=== PATIENT | female | born 1990 | race Caucasian/White ===

== ENCOUNTER 2020-09-26 18:55 | Inpatient (IN) | payer OTHER, SELFPAY ==
--- NOTE | 2020-09-26 16:55 | PCM.HP.OB ---
- Problem List (1) 40 weeks gestation of Status: Acute (2) Lab test positive for detection of COVID-19 virus Status: Acute History Date of Admission: 09/26/20 Final ROSETTE: 09/25/20 Gestational age: 40 Weeks and 1 Days History of this : This is a 30 year-old, G 2, P 0010, at 40w1d gestational age who presents for scheduled IOL for covid positive in . has been uncomplicated. She tested positive for covid on 09/14/2020. She had mild symptoms. Medical History: Medical History (Last Updated 09/26/20 @ 16:[address] Reny Cameron, DO) History of miscarriage Z87.59 Surgical History: Surgical History (Last Updated 09/26/20 @ 16:[address] Reny Cameron, ) History of wisdom tooth extraction K08.409 Smoking Status: Never smoker Alcohol: None Number of Fetus(es): 1 History Past Pregnancies: Past Pregnancies Delivery Date Name GA/ Weeks Outcome Route Wt Sex Labor Length Anesthesia Delivery Location Provider FOB Labs: See [facility] records Expected Infant Delivery Method: Spontaneous Vaginal Assessment/Plan All Active Problems 40 weeks gestation of (Acute) Lab test positive for detection of COVID-19 virus (Acute) This is a 30 year-old, G 2, P 0010, at 40w1d gestational age who presents for scheduled IOL for covid. - She tested positive for covid on 09/14/2020. She has had mild symptoms. She had an NST that was reactive this week. Plan was discussed with [facility] by myself, as well as partner Dr. Saavedra, and [facility] recommended a 40 wk IOL given covid positive in . Her is asymptomatic and tested negative per the patient's report about 1 week ago. Discussed r/b/a to an IOL and pt consented and desires to proceed with an induction - Routine intrapartum care - GBS negative - Epidural PRN - Plans on . Discussed safe to limit exposure to covid in the office - To coordinate care of patient with peds and
[2020-09-26 19:20] VITALS: BP 121/76; PULSE 64; TEMP 37.2; O2SAT 98
[2020-09-26 19:21] VITALS: BMI 24.0
[2020-09-26] MEDS: Lactated Ringers 1,000 ML 50 ML IV (19:40)
[2020-09-26] MEDS: miSOPROStol 25 MCG TABLET PO (20:05)
[2020-09-26] MEDS: 0.9% Saline Lock 10 ML Syringe IV (20:09)
[2020-09-26 20:13] LABS: Absolute Lymphocyte Count 2.79 X10^3/uL (0.83-4.51); Absolute Neutrophil Count 5.1 X10^3/uL (2.0-7.7); Basophil# 0.01 X10^3/uL; Basophil% 0.1 % (0-1); Eosinophil# 0.07 X10^3/uL; Eosinophils% 0.8 % (0-5); Hematocrit 33.9 % (37-47); Hemoglobin 11.4 g/dL (12.0-15.0); Lymphocyte # 2.79 X10^3/ul (4.0); Lymphocyte % 31.8 % (19-41); Mean Corp Hgb Conc 33.6 g/dL (32-36); Mean Corpuscular Hgb 29.7 pg (27.0-32.0); Mean Corpuscular Volume 88.3 fL (81-99); Mean Platelet Vol. 10.4 fl (6.2-12.0); Monocyte# 0.69 X10^3/uL; Monocyte% 7.9 % (0-10); NRBC Flagged by Analyzer 0 % (0-5); Neutrophil # 5.09 X10^3/uL (2.7-7.7); Neutrophil % 58.1 % (47-70); Platelet Count 183 K/mm3 (150-450); RBC Distribution Width CV 13.1 % (11.6-14.6); Red Blood Count 3.84 M/mm3 (4.2-5.4); White Blood Count 8.8 K/mm3 (4.4-11.0)
[2020-09-26] MEDS: Acetaminophen 325 MG Tablet PO (21:02)
[2020-09-27] VITALS (44 sets, daily range): BP systolic 94–133; BP diastolic 48–80; PULSE 55–91; RESP 16–18; TEMP 36.4–37.6; O2SAT 95–100
[2020-09-27] MEDS: miSOPROStol 25 MCG TABLET PO ×2 (00:20→04:14)
[2020-09-27] MEDS: Lactated Ringers 500 ML 999 ML IV ×3 (01:18→13:28)
[2020-09-27] MEDS: Lactated Ringers 1,000 ML 200 ML IV (07:50)
--- NOTE | 2020-09-27 08:34 | PN.OBGYN_ITS ---
Patient Problems: Active and Suspected Problems (Last Updated 09/26/20 @ 16:[address] Reny Cameorn, DO) 40 weeks gestation of (Acute) Lab test positive for detection of COVID-19 virus (Acute) Subjective: Patient seen at bedside. Denies any pain. Denies feeling any contractions. Slept off and on throughout the night. - Physical Exam Vitals/I&O's: Vital Signs Temp Pulse BP Pulse Ox 98.1 F 55 L 107/67 99 09/27/20 07:36 09/27/20 07:36 09/27/20 07:36 09/27/20 07:36 Weight: 139 lb 15.896 oz Body Mass Index (BMI) 24.0 Intake and Output for Last 24 Hours 09/25/20 09/26/20 09/27/20 23:59 23:59 23:59 Intake Total 25.83 / 25.83 1296.17 / 1296.17 Output Total 500 / 500 Balance 25.83 / 25.83 796.17 / 796.17 General: Alert, Oriented x3, Cooperative Lungs: Normal air movement Cardiovascular: Regular rate Abdomen: Soft, Non Tender, Gravid Skin: No rashes Neurological: Cranial nerves II-XII grossly intact Psych/Mental Status: Normal Affect Laboratory Results 09/26/20 19:40: WBC 8.8, RBC 3.84 L, Hgb 11.4 L, Hct 33.9 L, MCV 88.3, MCH 29.7, MCHC 33.6, RDW Std Deviation 42.0, RDW Coeff of Romy 13.1, Plt Count 183, MPV 10.4, Immature Gran % (Auto) 1.300 H, Neut % (Auto) 58.1, Lymph % (Auto) 31.8, [place] % (Auto) 7.9, Eos % (Auto) 0.8, Baso % (Auto) 0.1, Absolute Neuts (auto) 5.1, Absolute Lymphs (auto) 2.79, Nucleated RBC % 0 09/26/20 19:40: Blood Type A POSITIVE, Antibody Screen NEGATIVE Current Medications Acetaminophen (Acetaminophen 325 Mg Tablet) 325 - 650 mg PO Q4H PRN PRN PRN Reason: Pain Score 1-3 Last Admin: 09/26/20 21:02 Dose: 650 mg Documented by: Al Hydroxide/Mg Hydroxide (Mag Hydrox/Al Hydrox/Simeth 30 Ml Udc) 15 - 30 ml PO Q4H PRN PRN PRN Reason: INDIGESTION Citric Acid/Sodium Citrate (Sodium Citrate/Citric Acid 30 Ml Udc) 30 ml PO X1 PRN PRN Reason: Section Fentanyl Citrate (Fentanyl 100 Mcg/2 Ml Ampul) 25 - 50 mcg IV Q2H PRN PRN PRN Reason: Pain Score 4-10 Lactated Ringer's () 500 mls @ 999 mls/hr IV .Q31M PRN PRN Reason: Epidural Last Infusion: 09/27/20 01:49 Dose: Infused Documented by: Lactated Ringer's () 500 mls @ 999 mls/hr IV .Q31M PRN PRN Reason: Corrective Measures Lactated Ringer's () 1,000 mls @ 50 mls/hr IV .Q20H ISAIAS Last Admin: 09/27/20 07:50 Dose: 200 mls/hr Documented by: Oxytocin/Sodium Chloride () 30 units in 500 mls @ 2 mls/hr IV .Q250H ISAIAS Misoprostol (Misoprostol 25 Mcg Tablet) 25 mcg PO Q4H ISAIAS Last Admin: 09/27/20 04:14 Dose: 25 mcg Documented by: Ondansetron HCl (Ondansetron 4 Mg/2 Ml Vial) 4 mg IV Q4H PRN PRN PRN Reason: NAUSEA Prochlorperazine Edisylate (Prochlorperazine 10 Mg/2 Ml Vial) 10 mg IV Q6H PRN PRN PRN Reason: NAUSEA Sodium Chloride (0.9% Saline Lock 10 Ml Syringe) 10 - 40 ml IV X1 PRN PRN Reason: SALINE FLUSH Last Admin: 09/26/20 20:09 Dose: 10 ml Documented by: Medical Necessity - Tobacco Use Smoking Status: Never smoker Assessment/Plan All Active Problems (Last Updated 09/26/20 @ 16:[address] Reny Cameron, DO) 40 weeks gestation of (Acute) Lab test positive for detection of COVID-19 virus (Acute) at 40.0 weeks gestation for induction of labor due to COVID-19 positive test result 10 days ago Category 1 tracing currently Category 2 with variables and prolonged deceleration earlier this morning Continue present plan of care. CE/-3 (no change from 399) A.R.O.M for clear fluid- IUPC placed Start IV Pitocin and titrate per policy Patient desires epdural Dr. Montes notified and is collaborating physician
[2020-09-27] MEDS: Oxytocin 30 units/NS 500 ml 30 UNITS/500 ML IV.SOLN IV (10:15)
[2020-09-27] MEDS: fentaNYL-bupivacaine (epidural) 100 ML BAG EPIDURAL (14:11)
--- NOTE | 2020-09-27 16:01 | NURSING ---
Small blister to lower right quadrant noted on abdomen during prep from novii monitor.Will continue to monitor.
[2020-09-27] MEDS: Sodium Citrate/Citric Acid 30 ML UDC PO (16:04)
[2020-09-27] MEDS: Cefazolin 2 GM in 0.9% Normal Saline 100 ML IV (16:08)
--- NOTE | 2020-09-27 17:38 | OP.PCM_ITS ---
Report of Operation Surgery/Procedure Performed:: Primary low transverse section Description of Surgical Findings:: Normal maternal uterus and adnexa Delivery Classification: KIMBERLY Final ROSETTE: 09/25/20 Gestational age: 40 Weeks and 2 Days county home demonstration agent: Chayito Castro Type of Anesthesia:: Epidural Date of Procedure: 09/27/20 Pre-Operative Diagnosis: (1) Inability of fetus to tolerate labor Post-Operative Diagnosis: Same Indications: Patient was admitted for induction of labor due to history of COVID in . Patient received cytotec and then was started on pitocin. Amniotomy performed. Some late decelerations were noted and resolved with interventions. Pitocin was restarted and she began to have persistent late decelerations. Patient counseled on R/B/A and decision made to proceed with primary section. Indications for : Nonreassuring Status Description of Procedure: Patient taken to OR where epidural anesthesia was dosed. She was prepped and draped in the normal sterile fashion in a dorsal supine position with a leftward tilt. After ensuring adequacy of anesthesia the Pfannensteil skin incision was made and carried through to the underlying fascia with a scalpel. The fascia was incised in the midline and carried laterally with the Raygoza scissors. The rectus muscles were in the midline and the peritoneum was entered bluntly. The bladder flap was dissected down carefully with the Metzenbaum scissors and blunt dissection. The uterus was incised in a transverse fashion and then incision extended with cephalocaudad traction. The fetus was vertex and the head was elevated to the uterine incision. With fundal pressure the head delivered. head was gently guided to allow delivery of anterior and posterior shoulders. No excess traction placed on head. Body delivered and 3VC clamped & cut in delayed fashion. Then the was handed off to the waiting RN. The placenta was delivered with gentle traction and fundal massage and the uterus was exteriorized and cleared of all clots and debris. The uterine incision was closed with 1 vicryl suture in a running locked fashion. The bovie was used to further obtain further hemostasis of the uterine incision. A second imbricating layer of monocryl was placed. The uterus was returned to the peritoneal cavity. The pelvis was irrigated & then cleared of all clots and debris. 2 additional sutures were placed on the uterine incision to further obtain excellent hemostasis. The uterine incision was reexamined and found to be hemostatic. Some aaron was placed over the uterine incision due to the denuded areas. Peritoneum closed with 3-0 vicryl in running fashion. The fascia was closed with looped PDS suture in a running standard fashion. The subcutaneous tissue was examined & any bleeding bovie cauterized. The subcutaneous tissue was reapproximated with plain gut suture. The skin was closed in a subcuticular fashion by the GYROSCOPIC INSTRUMENT TESTER with me present in the labor and delivery suite. I performed the remainder of the procedure w/ assistance. Amniotic Membrane Rupture Type: Artificial Amniotic Fluid Description: Clear Placenta Disposition: [facility] Drain: Carrero to straight drain Fluids Replaced: 1300ml Cord Entanglement: Around neck x 1, loose Nuchal Cord Compression: With compression Cord Vessel Description: 3 Vessels Esitmated Blood Loss (ml): 800ml Gender: Female - Semaj (1 minute): 8 (5 minute): 9 Delayed cord clamping: Yes Antibiotic Given: Ancef 2 grams IV x1 - Admit VTE Documentation VTE Present on Admission: No VTE Mechan Device Prophylaxis: SCD's
[2020-09-27] MEDS: Oxytocin 30 units/NS 500 ml 30 UNITS/500 ML IV.SOLN 167 UNITS IV (18:48)
--- NOTE | 2020-09-27 19:58 | NURSING ---
epidural catheter removed, blue tip intact
[2020-09-27] MEDS: Acetaminophen 500 MG Tablet 1000 MG PO (20:08)
[2020-09-27] MEDS: Lactated Ringers 1,000 ML 100 ML IV (21:53)
[2020-09-27] MEDS: Ketorolac 30 MG/ML Syringe IV (22:59)
[2020-09-27] MEDS: Enoxaparin 40 MG/0.4 ML Syringe SC (23:54)
[2020-09-28] VITALS (8 sets, daily range): BP systolic 88–101; BP diastolic 45–60; PULSE 67–93; RESP 14–18; TEMP 36.6–37.5; O2SAT 98–99
[2020-09-28] MEDS: Acetaminophen 500 MG Tablet 1000 MG PO ×4 (02:02→20:40)
[2020-09-28] MEDS: Ketorolac 30 MG/ML Syringe IV (06:03)
[2020-09-28] MEDS: 0.9% Saline Lock 10 ML Syringe IV (06:04)
--- NOTE | 2020-09-28 06:12 | NURSING ---
patient received 0.5ml of Toradol before it began burning. Patient refused other 0.5ml of dose and does not want any further toradol given. saline lock left in place until pt finishes two voids.
[2020-09-28 06:30] LABS: Hematocrit 23.5 % (37-47); Hemoglobin 7.7 g/dL (12.0-15.0); Mean Corp Hgb Conc 32.8 g/dL (32-36); Mean Corpuscular Hgb 29.3 pg (27.0-32.0); Mean Corpuscular Volume 89.4 fL (81-99); Mean Platelet Vol. 9.7 fl (6.2-12.0); Platelet Count 128 K/mm3 (150-450); RBC Distribution Width CV 13.3 % (11.6-14.6); RBC Distribution Width SD 43.8 fl (35.1-43.9); Red Blood Count 2.63 M/mm3 (4.2-5.4)
--- NOTE | 2020-09-28 07:34 | PCM.PN.OB ---
Patient Problems: Active and Suspected Problems (Last Updated 09/26/20 @ 16:[address] Reny Cameron, DO) 40 weeks gestation of (Acute) Lab test positive for detection of COVID-19 virus (Acute) Subjective: Patient resting at this time. Pain controlled with Tylenol and Motrin PO. . Afebrile. Denies SOB, chest pain, dizziness. Lochia decreasing. Objective: Hgb this morning 7.7 down from 11.4 yesterday Carrero out and patient has voided - Physical Exam Vitals/I&O's: Vital Signs Temp Pulse Resp BP Pulse Ox 99.5 F H 68 18 96/53 L 98 09/28/20 00:45 09/28/20 03:27 09/28/20 03:50 09/28/20 03:27 09/28/20 03:50 Oxygen Delivery Method Room Air Weight: 139 lb 15.896 oz Body Mass Index (BMI) 24.0 Intake and Output for Last 24 Hours 09/26/20 09/27/20 09/28/20 23:59 23:59 23:59 Intake Total 25.83 / 25.83 4715.33 / 4715.33 506.67 / 506.67 Output Total 1750 / 1750 50 / 50 Balance 25.83 / 25.83 2965.33 / 2965.33 456.67 / 456.67 General: Alert, Oriented x3 Lungs: Normal air movement Cardiovascular: Regular rate Abdomen: Soft, Tender Extremities: Capillary Refill Less than 3 Seconds, No Calf Tenderness Skin: No rashes Musculoskeletal: No Tenderness to Palpation of Joints or Extremities Neurological: Cranial nerves II-XII grossly intact Laboratory Results 09/28/20 06:15: WBC 9.0, RBC 2.63 L, Hgb 7.7 L, Hct 23.5 L, MCV 89.4, MCH 29.3, MCHC 32.8, RDW Std Deviation 43.8, RDW Coeff of Romy 13.3, Plt Count 128 L, MPV 9.7 Current Medications Acetaminophen (Acetaminophen 500 Mg Tablet) 1,000 mg PO Q6H ISAIAS Last Admin: 09/28/20 02:02 Dose: 1,000 mg Documented by: Bisacodyl (Bisacodyl 10 Mg Suppository) 10 mg RECTAL UD PRN PRN Reason: If no BM Diphenhydramine HCl (Diphenhydramine 25 Mg Capsule) 25 mg PO Q6H PRN PRN PRN Reason: ITCHING Stop: 09/28/20 17:42 Enoxaparin Sodium (Enoxaparin 40 Mg/0.4 Ml Syringe) 40 mg SC DAILY@1000 ISAIAS Last Admin: 09/27/20 23:54 Dose: 40 mg Documented by: Hydrocortisone (Hydrocortisone 2.5% Crm) 1 applic TOPICAL TID PRN PRN; Protocol PRN Reason: Discomfort Ibuprofen (Ibuprofen 600 Mg Tablet) 600 mg PO Q6H [facility] Ketorolac Tromethamine (Ketorolac 30 Mg/Ml Syringe) 30 mg IV Q6H [facility] Stop: 09/28/20 17:01 Last Admin: 09/28/20 06:03 Dose: 30 mg Documented by: Methylergonovine Maleate (Methylergonovine 0.2 Mg/Ml Ampul) 0.2 mg IM X1 PRN PRN Reason: Uterine Atony Nalbuphine HCl (Nalbuphine 10 Mg/Ml Ampul) 5 mg IV Q3H PRN PRN PRN Reason: ITCHING Stop: 09/28/20 17:42 Naloxone HCl (Naloxone 0.4 Mg/Ml Syringe) 0.02 mg IV Q1M PRN PRN Reason: RR <10 and pt unresponsive Ondansetron HCl (Ondansetron 4 Mg/2 Ml Vial) 4 mg IV Q4H PRN PRN PRN Reason: Nausea Oxycodone HCl (Oxycodone 5 Mg Tablet) 5 - 10 mg PO Q4H PRN PRN PRN Reason: Pain Score 4-10 Prochlorperazine Edisylate (Prochlorperazine 10 Mg/2 Ml Vial) 10 mg IV Q6H PRN PRN PRN Reason: NAUSEA Senna/Docusate Sodium (Senna/Docusate Sodium 1 Tablet) 0 tablet PO DAILY [facility] Simethicone (Simethicone 80 Mg Tablet) 80 mg PO [facility]S PRN PRN Reason: Indigestion/stomach pain Last Admin: 09/28/20 06:02 Dose: 80 mg Documented by: Sodium Chloride (0.9% Saline Lock 10 Ml Syringe) 5 - 15 ml IV UD PRN PRN Reason: SALINE FLUSH Last Admin: 09/28/20 06:04 Dose: 10 ml Documented by: Medical Necessity - Tobacco Use Smoking Status: Never smoker Assessment/Plan All Active Problems (Last Updated 09/26/20 @ 16:[address] Reny Cameron, DO) 40 weeks gestation of (Acute) Lab test positive for detection of COVID-19 virus (Acute) POD #1 Primary C/S Start Ferrous Sulfate PO daily Repeat CBC tomorrow Lovenox 40 mg SQ daily for prophylactic for Post Op, COVID-19 positive Pain control Routine care Ambulate support
[2020-09-28] MEDS: Enoxaparin 40 MG/0.4 ML Syringe SC (10:58)
[2020-09-28] MEDS: Senna/Docusate Sodium 1 Tablet PO (10:59)
[2020-09-28] MEDS: Ibuprofen 600 MG Tablet PO ×3 (11:00→23:28)
[2020-09-28] MEDS: Ferrous Sulfate 325 MG Tablet PO (17:25)
--- NOTE | 2020-09-28 20:00 | CASEMGMT ---
Social Work Brief Assessment Labor and Delivery Unit Refer documentation below for further details. Date of Referral/Notification: 09/28/2020 Reason for Referral: History of Anxiety, First time mom Date of Intervention: 09/28/2020 Time of Intervention: 20:00 Informant: Medical record and mother of baby (MOB) History: s/p 09/27/2020 Assessment: Met with MOB and FOB, Christiano Meade in room. Introduced role and reason for consult due to history of anxiety. Per MOB, does not have history of anxiety, but was anxious during labor as was not planning for . MOB reports is having increased pain this evening, but pain has been managed well. MOB reports is bottle feeding and openly discussed difficult time with overnight. Emotional support and active listening provided. MOB reports to have all needs met for baby girlSemaj. MOB states good support from and family. MOB denies any needs. Collaboration with nursing. Per nursing, MOB and FOB doing well with care. Plan: Home with resources provided No further needs requested or indicated.
[2020-09-28] MEDS: oxyCODONE 5 MG Tablet PO (20:36)
[2020-09-29] MEDS: oxyCODONE 5 MG Tablet PO (00:51)
[2020-09-29] MEDS: Acetaminophen 500 MG Tablet 1000 MG PO ×3 (02:06→14:37)
[2020-09-29 02:08] VITALS: BP 93/54; PULSE 76; RESP 18; TEMP 36.9
[2020-09-29] MEDS: Ibuprofen 600 MG Tablet PO ×3 (06:11→18:28)
[2020-09-29 06:30] LABS: Hematocrit 23.4 % (37-47); Hemoglobin 7.5 g/dL (12.0-15.0); Mean Corp Hgb Conc 32.1 g/dL (32-36); Mean Corpuscular Hgb 29.5 pg (27.0-32.0); Mean Corpuscular Volume 92.1 fL (81-99); Mean Platelet Vol. 9.8 fl (6.2-12.0); Platelet Count 128 K/mm3 (150-450); RBC Distribution Width CV 13.5 % (11.6-14.6); RBC Distribution Width SD 45.2 fl (35.1-43.9); Red Blood Count 2.54 M/mm3 (4.2-5.4); White Blood Count 8.1 K/mm3 (4.4-11.0)
--- NOTE | 2020-09-29 08:03 | PCM.PN.OB ---
Patient Problems: Active and Suspected Problems (Last Updated 09/26/20 @ 16:[address] Reny Cameron, DO) 40 weeks gestation of (Acute) Lab test positive for detection of COVID-19 virus (Acute) Subjective: Pain worse when up and moving. +flatus, no BM. Urinating and tolerating regular diet. Denies CP/palpitations/lightheadedness or SOB. Denies STYLES - Physical Exam Vitals/I&O's: Vital Signs Temp Pulse Resp BP Pulse Ox 98.5 F 76 18 93/54 L 98 09/29/20 02:08 09/29/20 02:08 09/29/20 02:08 09/29/20 02:08 09/28/20 03:50 Oxygen Delivery Method Room Air Weight: 63.5 kg Body Mass Index (BMI) 24.0 Intake and Output for Last 24 Hours 09/27/20 09/28/20 09/29/20 23:59 23:59 23:59 Intake Total 4715.33 / 4715.33 506.67 / 506.67 Output Total 1750 / 1750 500 / 500 Balance 2965.33 / 2965.33 6.67 / 6.67 General: Alert, Cooperative, No apparent distress Abdomen: Soft, Distended - moderately, some firmness lower abdomen, Tender - moderately Skin: Incision - bandage is clean,dry and intact Laboratory Results 09/29/20 06:15: WBC 8.1, RBC 2.54 L, Hgb 7.5 L, Hct 23.4 L, MCV 92.1, MCH 29.5, MCHC 32.1, RDW Std Deviation 45.2 H, RDW Coeff of Romy 13.5, Plt Count 128 L, MPV 9.8 Current Medications Acetaminophen (Acetaminophen 500 Mg Tablet) 1,000 mg PO Q6H [facility] Last Admin: 09/29/20 02:06 Dose: 1,000 mg Documented by: Bisacodyl (Bisacodyl 10 Mg Suppository) 10 mg RECTAL UD PRN PRN Reason: If no BM Enoxaparin Sodium (Enoxaparin 40 Mg/0.4 Ml Syringe) 40 mg SC DAILY@1000 ISAIAS Last Admin: 09/28/20 10:58 Dose: 40 mg Documented by: Ferrous Sulfate (Ferrous Sulfate 325 Mg Tablet) 325 mg PO DAILY@1700 [facility] Last Admin: 09/28/20 17:25 Dose: 325 mg Documented by: Hydrocortisone (Hydrocortisone 2.5% Crm) 1 applic TOPICAL TID PRN PRN; Protocol PRN Reason: Discomfort Ferric Sodium Gluconate Complex 250 mg/ Sodium Chloride 270 mls @ 135 mls/hr IV X1 ONE Stop: 09/29/20 10:29 Ibuprofen (Ibuprofen 600 Mg Tablet) 600 mg PO Q6H [facility] Last Admin: 09/29/20 06:11 Dose: 600 mg Documented by: Methylergonovine Maleate (Methylergonovine 0.2 Mg/Ml Ampul) 0.2 mg IM X1 PRN PRN Reason: Uterine Atony Naloxone HCl (Naloxone 0.4 Mg/Ml Syringe) 0.02 mg IV Q1M PRN PRN Reason: RR <10 and pt unresponsive Ondansetron HCl (Ondansetron 4 Mg/2 Ml Vial) 4 mg IV Q4H PRN PRN PRN Reason: Nausea Oxycodone HCl (Oxycodone 5 Mg Tablet) 5 - 10 mg PO Q4H PRN PRN PRN Reason: Pain Score 4-10 Last Admin: 09/29/20 00:51 Dose: 5 mg Documented by: Prochlorperazine Edisylate (Prochlorperazine 10 Mg/2 Ml Vial) 10 mg IV Q6H PRN PRN PRN Reason: NAUSEA Senna/Docusate Sodium (Senna/Docusate Sodium 1 Tablet) 0 tablet PO DAILY [facility] Last Admin: 09/28/20 10:59 Dose: 2 tablet Documented by: Simethicone (Simethicone 80 Mg Tablet) 80 mg PO [facility] PRN PRN Reason: Indigestion/stomach pain Last Admin: 09/28/20 17:28 Dose: 80 mg Documented by: Sodium Chloride (0.9% Saline Lock 10 Ml Syringe) 5 - 15 ml IV UD PRN PRN Reason: SALINE FLUSH Last Admin: 09/28/20 06:04 Dose: 10 ml Documented by: Medical Necessity - Tobacco Use Smoking Status: Never smoker Assessment/Plan All Active Problems (Last Updated 09/26/20 @ 16:[address] Reny Cameron, DO) 40 weeks gestation of (Acute) Lab test positive for detection of COVID-19 virus (Acute) Postoperative day #2 status post primary section. Acute blood loss anemia, consistent with hemorrhage. Hemoglobin seems stable from yesterday. Did trend down slightly. Will recheck at noon today. If is stable and patient is asymptomatic with showering and ambulating more today, will DC home. If is symptomatic, will consider transfusion of 1 unit of packed red blood cells. We will give 1 dose of IV iron before discharge home. is breast-feeding and doing well.
--- NOTE | 2020-09-29 08:07 | DCINST_ITS ---
Discharge Diet: No Restrictions Discharge Activity: Return to Normal Activity, May Not Drive - for 2 weeks, May not drive while taking narcotic pain medications., May Shower, May Take a Tub Bath - in 7 days. May resume sexual activity in: 4-6 weeks Lifting Restrictions: 20 pounds Additional Activity Instructions:: Nothing in the vagina for 4-6 weeks. You may return to work/school in 6 weeks. Call your doctor if your incision/area has: Continuous Slow Oozing, Sudden Increased Bleeding, Increased Pain/ Swelling, Increased Redness, Foul Smelling Discharge Call your doctor if you observe: Fever of 101 or Higher, Using more than one pad per hour - for 2 hours Suture Line Care: Avoid Pulling/Pushing, Avoid Pinching/Bending Cleanse incision/area with: Keep Dressing Clean & Dry Additional Instructions: If you experience any of the following, contact your healthcare provider. * Bleeding that soaks a pad every hour for 2 hours * Fever 100.4 or higher * Unrelieved incision or abdominal pain * Swelling, redness, discharge or bleeding from your incision or episiotomy site * Your incision begins to separate * Problems urinating (including inability to urinate or burning while urinating). * Visual changes * Severe headache * Flu-like symptoms * Pain or redness in one of both of your breasts * Pain, warmth, tenderness or swelling in your legs, especially the calf area * Frequent nausea and vomiting * Symptoms of depression or anxiety If you experience any of the following, call 911 or go to the nearest Emergency Room. * Chest pain * Problems breathing * Seizure activity * Partial or complete paralysis of a body part, slurred speech, weakness or drooping of the face, or a sudden inability to walk or hold your balance Allergies/Adverse Reactions: Allergies azithromycin Allergy (Verified 09/26/20 19:23) Swelling ethinyl estradiol [From Aviane] Allergy (Verified 09/26/20 19:23) Hives levonorgestrel [From Aviane] Allergy (Verified 09/26/20 19:23) Hives Medications to take at Discharge Acetaminophen [Tylenol] 500 - 1,000 mg PO Q6H PRN PRN 09/26/20 Vits [Prenatabs FA ] 1 tab PO DAILY 09/26/20 Docusate Sodium [Colace] 100 mg PO BID PRN PRN #30 cap 09/29/20 Ibuprofen [Motrin] 600 mg PO Q6H PRN #60 tab 09/29/20 Oxycodone [Oxyir] 5 mg PO Q6H PRN PRN 7 Days #15 tab 09/29/20 The following prescriptions were given: Docusate Sodium [Colace] 100 mg PO BID PRN PRN #30 cap PRN Reason: Constipation Transmission Status: Pending to [facility] Ibuprofen [Motrin] 600 mg PO Q6H PRN #60 tab PRN Reason: Pain Transmission Status: Pending to [facility] Oxycodone [Oxyir] 5 mg PO Q6H PRN PRN 7 Days #15 tab PRN Reason: severe pain Transmission Status: Sent to [facility] Follow-Up: Call to make an appointment with your doctor for an incision check in 1-2 weeks. You will also need a 6 week post- follow up appointment. Test results from this visit will be discussed in further detail at your follow-up appointment, if applicable. Please Follow Up With: Darius Montes MD - Call to make an appointment for an incision check in 1-2 [phone] When: You will need a post check in 6 weeks. Primary Care Physician: Lea Bender PA-C [Primary Care Provider] -
[2020-09-29 09:23] VITALS: BP 98/62; PULSE 62; RESP 18; TEMP 36.5; O2SAT 100
[2020-09-29] MEDS: Senna/Docusate Sodium 1 Tablet PO (09:32)
[2020-09-29] MEDS: Enoxaparin 40 MG/0.4 ML Syringe SC (09:33)
[2020-09-29] MEDS: Sodium Ferric Gluconat 250 MG in 0.9% Normal Saline 250 ML 135 MG IV (09:36)
[2020-09-29] MEDS: 0.9% Saline Lock 10 ML Syringe IV ×2 (09:37→11:42)
[2020-09-29 13:26] LABS: Hematocrit 22.2 % (37-47); Hemoglobin 7.3 g/dL (12.0-15.0); Mean Corp Hgb Conc 32.9 g/dL (32-36); Mean Corpuscular Hgb 30.3 pg (27.0-32.0); Mean Corpuscular Volume 92.1 fL (81-99); Platelet Count 160 K/mm3 (150-450); RBC Distribution Width CV 13.3 % (11.6-14.6); RBC Distribution Width SD 45.3 fl (35.1-43.9); Red Blood Count 2.41 M/mm3 (4.2-5.4); White Blood Count 8.9 K/mm3 (4.4-11.0)
[2020-09-29 14:40] VITALS: BP 107/69; PULSE 77; RESP 18; TEMP 37; O2SAT 100
[2020-09-29] MEDS: Ferrous Sulfate 325 MG Tablet PO (18:28)
--- NOTE | 2020-09-29 18:49 | NURSING ---
This RN agrees with Sudhir RN charting and patient care.
--- NOTE | 2020-09-30 07:21 | PCM.DC.SUM ---
Discharge Date and Diagnosis - Problem List Patient Problems: Active and Suspected Problems (Last Updated 09/26/20 @ 16:[address] Reny Cameron DO) 40 weeks gestation of (Acute) Lab test positive for detection of COVID-19 virus (Acute) Date of Admission: 09/26/20 Date of Discharge: 09/30/20 - Primary Discharge Diagnosis Acute Problems: Active Problems (Last Updated 09/26/20 @ 16:[address] Reny Cameron DO) 40 weeks gestation of (Acute) Lab test positive for detection of COVID-19 virus (Acute) Hospital Course and Treatment Operations: - - Primary low transverse section Summary of Care Provided: The patient is a 30 year old female who had COVID-19 earlier this . It had been 2 weeks since her diagnosis of COVID-19. Section. She underwent induction of labor. During the labor, she began to have decelerations remote from delivery. Decision was made to proceed with a low transverse section due to intolerance of labor. This was performed without difficulty on 09/27/2020. However, patient was noted to have a postoperative hemorrhage. Her hemoglobin dropped but stabilized. She not require blood transfusion. She was recommended to continue vitamins, push fluids, take an iron supplement and she was given a dose of IV iron here to help facilitate red cell production. Patient was discharged home with otherwise routine instructions and prescriptions. [] Patient Problems: Active and Suspected Problems (Last Updated 09/26/20 @ 16:[address] Reny Cameron DO) 40 weeks gestation of (Acute) Lab test positive for detection of COVID-19 virus (Acute) - Physical Exam Vitals/I&O's: Vital Signs Temp Pulse Resp BP Pulse Ox 98.6 F 77 18 107/69 100 09/29/20 14:40 09/29/20 14:40 09/29/20 14:40 09/29/20 14:40 09/29/20 14:40 Oxygen Delivery Method Room Air Weight: 63.5 kg Body Mass Index (BMI) 24.0 Intake and Output for Last 24 Hours 09/28/20 09/29/20 09/30/20 23:59 23:59 23:59 Intake Total 506.67 / 506.67 270 / 270 Output Total 500 / 500 Balance 6.67 / 6.67 270 / 270 Laboratory Results 09/29/20 12:50: WBC 8.9, RBC 2.41 L, Hgb 7.3 L, Hct 22.2 L, MCV 92.1, MCH 30.3, MCHC 32.9, RDW Std Deviation 45.3 H, RDW Coeff of Romy 13.3, Plt Count 160, MPV 10.0 Discharge Diet: No Restrictions Discharge Activity: Return to Normal Activity, May Not Drive - for 2 weeks, May not drive while taking narcotic pain medications., May Shower, May Take a Tub Bath - in 7 days. May resume sexual activity in: 4-6 weeks Additional Activity Instructions:: Nothing in the vagina for 4-6 weeks. You may return to work/school in 6 weeks. Call your doctor if your incision/area has: Continuous Slow Oozing, Sudden Increased Bleeding, Increased Pain/ Swelling, Increased Redness, Foul Smelling Discharge Call your doctor if you observe: Fever of 101 or Higher, Using more than one pad per hour - for 2 hours Suture Line Care: Avoid Pulling/Pushing, Avoid Pinching/Bending Cleanse incision/area with: Keep Dressing Clean & Dry Home Medications: Medications to take at Discharge Acetaminophen [Tylenol] 500 - 1,000 mg PO Q6H PRN PRN 09/26/20 Vits [Prenatabs FA ] 1 tab PO DAILY 09/26/20 Docusate Sodium [Colace] 100 mg PO BID PRN PRN #30 cap 09/29/20 Ibuprofen [Motrin] 600 mg PO Q6H PRN #60 tab 09/29/20 Oxycodone [Oxyir] 5 mg PO Q6H PRN PRN 7 Days #15 tab 09/29/20 Following Prescriptions Were Given to Patient: Docusate Sodium [Colace] 100 mg PO BID PRN PRN #30 cap PRN Reason: Constipation Transmission Status: Received by [facility] Ibuprofen [Motrin] 600 mg PO Q6H PRN #60 tab PRN Reason: Pain Transmission Status: Received by [facility] Oxycodone [Oxyir] 5 mg PO Q6H PRN PRN 7 Days #15 tab PRN Reason: severe pain Transmission Status: Received by [facility] Primary Care Physician: Lea Bender PA-C [Primary Care Provider] - Please follow up with your Primary Care Physician in: 1 week Please Follow Up With: Darius Montes MD When: You will need a post check in 6 weeks. Medical Necessity - Tobacco Use Smoking Status: Never smoker Meaningful Use Info Meaningful Use Diagnoses (Choose all that apply): None applicable
== END 2020-09-29 17:30 | disposition home or self-care (01) | DRG 787 ==
PROVIDERS: Advanced Practice Midwife; Admitting Provider Obstetrics & Gynecology; PCP Family Medicine; Referring Provider Obstetrics & Gynecology; Visit Provider Obstetrics & Gynecology
DX: O76 Abnormality in fetal heart rate and rhythm complicating labor and delivery (principal); O72.1 Other immediate postpartum hemorrhage; Z37.0 Single live birth; Z3A.40 40 weeks gestation of pregnancy; Z86.19 Personal history of other infectious and parasitic diseases; O69.1XX0 Labor and delivery complicated by cord around neck, with compression, not applicable or unspecified
CPT/HCPCS: 59025; 59050; 85025; 85027; 86850; 86900; 86901; 99218; J7050; J7120; A4216; G0378; J2405; J2916

== ENCOUNTER 2023-01-14 09:10 | Inpatient (IN) | payer BC, SELFPAY ==
[2023-01-14] VITALS (16 sets, daily range): BP systolic 87–110; BP diastolic 48–71; PULSE 55–88; RESP 14–18; TEMP 36–36.7; O2SAT 18–100; BMI 24.3
--- NOTE | 2023-01-14 | MISC_PTH ---
PATIENT: ALBERT TAVERA LOC: [facility] U#:[id number] AGE/SX: 32/F ROOM: WP009 RE01/14/[address]: Dr. Shantel Stauffer, MDDOB: 1990 BED: 1 DIS: 01/16/2023 SPEC #: [id number] RECD: 01/15/23 08:33 STATUS: LISA PATTI #: [id number] PARMJIT: 01/14/23 00:[address]: Shantel Stauffer DEPT: SURGICAL PATHOLOGY RECD BY: Sergio Arriaza ENTERED: 01/15/23 08:35 SP TYPE: MISC JESUSITA DR: Lea Bender PA-C Tissues: Skin appendage, NOS Procedures: Surgery Specimen Level IV HEADER OPERATION: Mole removal PRE-OP DIAGNOSIS: Mole TISSUE SUBMITTED: Mole MICROSCOPIC DIAGNOSIS Mole, not further specified, biopsy: Compound nevus with predominantly intradermal component. AM:collin 01/16/2023 MICROSCOPIC DESCRIPTION Slides are reviewed. GROSS DESCRIPTION Received is one container labeled with the patient's name and not further designated. The specimen consists of a piece of brown skin measuring 0.7 x 0.6 x 0.2 cm. The specimen is inked, serially sectioned and submitted entirely in one cassette. / SJ:collin 01/15/2023 TC:5 CPT: 79703
[2023-01-14] MEDS: Lactated Ringers 1,000 ML 999 ML IV (09:30)
[2023-01-14 09:46] LABS: Absolute Lymphocyte Count 1.75 X10^3/uL (0.83-4.51); Absolute Neutrophil Count 7.6 X10^3/uL (2.0-7.7); Basophil# 0.01 X10^3/uL; Basophil% 0.1 % (0-1); Eosinophil# 0.04 X10^3/uL; Eosinophils% 0.4 % (0-5); Hematocrit 33.8 % (37-47); Hemoglobin 11.4 g/dL (12.0-15.0); Lymphocyte # 1.75 X10^3/ul (0.83-4.51); Lymphocyte % 17.4 % (19-41); Mean Corp Hgb Conc 33.7 g/dL (32-36); Mean Corpuscular Hgb 28.8 pg (27.0-32.0); Mean Corpuscular Volume 85.4 fL (81-99); Mean Platelet Vol. 9.4 fl (6.2-12.0); Monocyte# 0.47 X10^3/uL; Monocyte% 4.7 % (0-10); NRBC Flagged by Analyzer 0 % (0-5); Neutrophil # 7.64 X10^3/uL (2.7-7.7); Neutrophil % 76.2 % (47-70); Platelet Count 205 K/mm3 (150-450); RBC Distribution Width CV 13.8 % (11.6-14.6); RBC Distribution Width SD 42.9 fl (35.1-43.9); Red Blood Count 3.96 M/mm3 (4.2-5.4)
[2023-01-14] MEDS: Acetaminophen 500 MG Tablet 1000 MG PO ×3 (09:47→22:07)
[2023-01-14] MEDS: Lactated Ringers 1,000 ML 150 ML IV (10:31)
[2023-01-14] MEDS: Sodium Citrate/Citric Acid 30 ML UDC PO (11:49)
--- NOTE | 2023-01-14 11:57 | PCM.HP.BLA ---
History and Physical Date of Admission: 01/14/23 Pre-Op History and Physical ? HPI: The patient is a 32 year old female presenting for pre-operative visit. She is scheduled for , for repeat elective cs at 40 weeks on 01/14/23. Procedure discussed along with risks, benefits and complications. Other alternatives discussed for management. Consent form signed? Yes. ? ? PAST MEDICAL HISTORY PAST MEDICAL HISTORY Diagnosis Date ? Anemia ? ? COVID-19 2019 ? Miscarriage ? ? x3 ? ? PAST SURGICAL HISTORY PAST SURGICAL HISTORY Procedure Laterality Date ? DELIVERY ONLY ? 09/27/2020 ? EXTRACTION, ERUPTED TOOTH OR EXPOSED ROOT (ELEVATION AND/OR FORCEPS REMOVAL) ? 2014 ? ? ? CURRENT MEDICATIONS Current Outpatient Medications Medication Sig Dispense Refill ? pantoprazole DR (PROTONIX) 20 mg tablet Take 1 tablet by mouth once daily. 30 tablet 1 ? ondansetron (ZOFRAN) 4 mg tablet Take 1 tablet by mouth every 8 hours as needed for nausea/vomiting. 30 tablet 1 ? Vgazbkia-Lq-Tkk-Fe-FA ( VITAMIN) tab Take 1 tablet by mouth. ? ? ? No current facility-administered medications for this visit. ? ? ALLERGIES: Aviane [Levonorgestrel-Ethinyl Estrad] and Zpak [Azithromycin] ? PERSONAL HISTORY: SOCIAL HISTORY Social History ? Tobacco Use ? Smoking status: Never ? Smokeless tobacco: Never Vaping Use ? Vaping Use: Never used Substance Use Topics ? Alcohol use: Not Currently ? ? Alcohol/week: 2.0 standard drinks ? ? Types: 2 Glasses of Wine (5oz) per week ? ? Comment: seldom ? Drug use: Never ? FAMILY HISTORY: FAMILY HISTORY FAMILY HISTORY Problem Relation Age of Onset ? GI Mother ? ? Lipids Father ? ? other (low testerone) Brother ? ? Diabetes Maternal Grandmother ? ? Heart Attack Maternal Grandfather ? ? Alzheimer's Disease Paternal Grandmother ? ? No Known Problems Paternal Grandfather ? ? ? REVIEW OF SYMPTOMS: negative except as noted above PHYSICAL EXAMINATION: ? VITALS: Blood pressure 100/60, weight 141 lb (64 kg), last menstrual period 04/09/2022, unknown if currently . ? GENERAL: The patient is well nourished, well hydrated in no acute distress. , The patient is oriented to time, place, and person. NECK: full range of motion Abd: gravid, non tedner ? IMPRESSION: @ 39 weeks gestation ? PLAN: repeat cs at 40 weeks ? Pt has been counseled on risks/benefits and alternatives of surgery including but not limited to anesthesia, bleeding, infection, injury to pelvic structures including bowel, bladder, ureters and vessels. Pt wishes to proceed with surgery at this time. Risk of transfusion reviewed ? Pre and post op instructions reviewed. ? I have reviewed and updated past medical and surgical history, medications and allergies Shantel Lewis MD ?9:35 AM
[2023-01-14] MEDS: Cefazolin 2 GM in 0.9% Normal Saline 100 ML IV (12:05)
--- NOTE | 2023-01-14 13:04 | EX.PCM.OBRPT ---
Details Operative Information Date of Procedure: 01/14/23 Pre-Operative Diagnosis: repeat elective cs, 40 weeks gestation Post-Operative Diagnosis: same, live male , removal of Right pubic mons nevus Indications for : Repeat Elective Classification: Scheduled Procedure Type: low transverse surveyor geophysical prospecting #1: Lissette Rothman Type of Anesthesia: Spinal Antibiotic Given: Ancef 2 grams IV x1 Drain: Carrero to straight drain Estimated Blood Loss: 600 Fluids Replaced: 750 Procedure Start Time: 12:26 Procedure Stop Time: 13:07 Time of Delivery: 12:29 Findings Description of Procedure: After informed consent was obtained the patient was taken the operating room she was given spinal anesthesia. She was then placed in the supine position. She was prepped and draped in the normal sterile fashion. Anesthesia was found to be adequate. At this time a Pfannenstiel skin incision was made with a knife was carried down to the underlying layer of the fascia. The fascial incision was then extended laterally using curved Raygoza scissor.Attention was then turned to the superior aspect of the fascial edge was grasped with 2 straight Ros clamps tented up and the rectus muscle dissected off sharply using curved Raygoza scissor. Rectus muscles were then in the midline bluntly and peritoneum was entered bluntly. Gentle opposing traction was placed. At this time the vesicouterine peritoneum was identified. small amount of peritoneal adhesions to anterior aspect of uterus noted. Scalpel was used to make a uterine incision in a low transverse fashion. The uterus was then entered bluntly gentle opposing traction was placed to extend this incision. Membranes were ruptured clear. 's head was brought to the uterine incision was delivered atraumatically. loose nuchal and body cord noted. delayed cord clamping performed. mouth and nose suctioned. Cord was clamped and cut infant was handed to the waiting nursery team. The Placenta was removed from the uterus. The uterus was then removed from the abdominal cavity. The uterus was cleared of all clots and debris using a lap. At this time the uterine incision was reapproximated using #1 Vicryl in a running locked fashion. the anterior surface of the uterus was oozy from the peritoneal adhesions. The Bovie was used to ensure excellent hemostasis. Multiple hopdxx-wc-jumud sutures were placed along the uterine incision. Posterior cul-de-sac was then cleared of all clots and debris. Uterus was placed back in the abdominal cavity. Gutters were cleared of all clots and debris. Uterine incision was reevaluated and noted to be of excellent hemostasis. Yvonne was placed over the uterus and the incision line. At this time the peritoneum was grasped with Kellys reapproximated using #2 Vicryl suture in a running fashion. Fascia was then reapproximated using #1 Vicryl in a running fashion. Subcu layer was reapproximated with #2 0 plain gut suture in an interrupted fashion. Subcu layer was closed using 4-0 Monocryl in a subcu fashion. Dry sterile dressing was applied. Instrument lap needle count correct ?2. Anticipated normal postoperative course. At the end of the procedure the patient was requesting the right pubic mons mole removed. Verbal consent was obtained. Scalpel was used to remove this lesion. It was removed at the base with the scalpel. Great hemostasis was appreciated. Sent to pathology for evaluation. Presentation: Positive for Vertex Amniotic Membrane Rupture Type: Artificial Amniotic Fluid Description: Clear Placental Delivery Description: Expressed Placenta Disposition: [facility] Specimen(s) Sent to Pathology: right pubic mons mole Cord Vessel Description: 3 Vessels Nuchal Cord Compression: Without compression A Gender: Male (1 minute): 8 (5 minute): 9 Delayed Cord Clamping: Yes Complications Risks of Surgery Discussed w/Patient: Bleeding, Anesthesia Risks, Infection, Need for Future C-Sections and Injury to surrounding structure(s) including bowel and bladder Complications: none
[2023-01-14] MEDS: Oxytocin 15 Units/NS 250ml 15 UNITS/250 ML IV.SOLN 83 UNITS IV (13:33)
[2023-01-14] MEDS: Ketorolac 30 MG/ML Syringe IV (13:53)
[2023-01-14] MEDS: 0.9% Saline Lock 10 ML Syringe IV (13:54)
[2023-01-14] MEDS: LACTATED RINGERS 500 ML 999 ML IV (16:28)
[2023-01-14] MEDS: Lactated Ringers 1,000 ML 100 ML IV (17:04)
--- NOTE | 2023-01-14 21:00 | NURSING ---
pt is sitting on the side of bed. Pt is reporting feeling dizzy. First post op ambulation delayed due to dizziness
--- NOTE | 2023-01-14 23:38 | NURSING ---
pt stood up at bedside to reassess dizzy feeling, pt walked to bathroom and back to bed and reported feeling less dizzy
[2023-01-15] MEDS: Ketorolac 30 MG/ML Syringe IV ×2 (02:28→07:55)
[2023-01-15] MEDS: Acetaminophen 500 MG Tablet 1000 MG PO ×4 (04:49→23:33)
[2023-01-15 04:50] VITALS: BP 93/44; PULSE 60; RESP 18; O2SAT 98
[2023-01-15 05:06] LABS: Hematocrit 27.8 % (37-47); Mean Corp Hgb Conc 32.4 g/dL (32-36); Mean Corpuscular Hgb 28.4 pg (27.0-32.0); Mean Corpuscular Volume 87.7 fL (81-99); Mean Platelet Vol. 9.4 fl (6.2-12.0); Platelet Count 165 K/mm3 (150-450); RBC Distribution Width CV 13.8 % (11.6-14.6); RBC Distribution Width SD 44.1 fl (35.1-43.9); Red Blood Count 3.17 M/mm3 (4.2-5.4); White Blood Count 11.5 K/mm3 (4.4-11.0)
[2023-01-15 07:49] VITALS: BP 95/53; PULSE 68; RESP 16; TEMP 36.3; O2SAT 98
[2023-01-15] MEDS: 0.9% Saline Lock 10 ML Syringe IV (07:55)
[2023-01-15] MEDS: Senna/Docusate Sodium 1 Tablet PO (10:50)
--- NOTE | 2023-01-15 12:56 | PCM.PN.OB ---
Subjective Subjective pain well controlled, average lochia. Gail. regular diet. Objective Data Objective Data Vital Signs: Vital Signs Temp Pulse Resp BP Pulse Ox O2 Del Method 97.3 F L 68 16 95/53 L 98 Room Air 01/15/23 07:49 01/15/23 07:49 01/15/23 07:49 01/15/23 07:49 01/15/23 07:49 01/15/23 07:49 Oxygen Delivery Method Room Air Weight: 64.1 kg Body Mass Index (BMI) 24.3 Intake & Output: Intake and Output for Last 24 Hours 01/13/23 01/14/23 01/15/23 23:59 23:59 23:59 Intake Total 2269.58 / 2269.58 970 / 970 Output Total 1450 / 1450 2300 / 2300 Balance 819.58 / 819.58 -1330 / -1330 Lab / Micro Data Result Diagrams: 01/15/23 04:55 Labs: Laboratory Results - last 24 hr 01/15/23 04:55: WBC 11.5 H, RBC 3.17 L, Hgb 9.0 L, Hct 27.8 L, MCV 87.7, MCH 28.4, MCHC 32.4, RDW Std Deviation 44.1 H, RDW Coeff of Romy 13.8, Plt Count 165, MPV 9.4 Physical Exam Const alert General Appearance: cooperative GI GI Narrative: soft, moderate distention, fundus firm, appropriately tender. Abdominal bandage clean dry and intact Assessment & Plan (1) delivery delivered: PLAN: POD #1 doing well, routine care. likely d/c tomorrow acute blood loss anemia, appropriate for blood loss during surgeyr. suspect somewhat dilutional. recheck tomorrow
[2023-01-15 13:01] VITALS: BP 95/52; PULSE 90; RESP 16; TEMP 36.9; O2SAT 98
[2023-01-15] MEDS: Ibuprofen 600 MG Tablet PO ×2 (13:10→20:03)
[2023-01-15 17:42] VITALS: BP 97/56; PULSE 84; RESP 16; TEMP 36.7; O2SAT 97
[2023-01-15] MEDS: oxyCODONE 5 MG Tablet PO ×2 (19:27→23:32)
[2023-01-15 20:05] VITALS: BP 95/60; PULSE 82; RESP 16; TEMP 36.5
[2023-01-16 02:05] VITALS: BP 87/50; PULSE 69; RESP 16; TEMP 36.2
[2023-01-16] MEDS: Ibuprofen 600 MG Tablet PO ×2 (02:05→08:13)
--- NOTE | 2023-01-16 02:34 | NURSING ---
Pt BP at 0205 was low and pt denies any symptoms. Pt was sleeping when VS were taken and is very tired. Will monitor and retake BP after pt wakes up alittle bit.
[2023-01-16 03:00] VITALS: BP 96/63
[2023-01-16] MEDS: Acetaminophen 500 MG Tablet 1000 MG PO (05:35)
[2023-01-16 05:48] LABS: Hematocrit 26.5 % (37-47); Hemoglobin 8.3 g/dL (12.0-15.0); Mean Corp Hgb Conc 31.3 g/dL (32-36); Mean Corpuscular Hgb 27.9 pg (27.0-32.0); Mean Corpuscular Volume 88.9 fL (81-99); Mean Platelet Vol. 9.3 fl (6.2-12.0); Platelet Count 165 K/mm3 (150-450); RBC Distribution Width SD 45.2 fl (35.1-43.9); Red Blood Count 2.98 M/mm3 (4.2-5.4); White Blood Count 10.8 K/mm3 (4.4-11.0)
[2023-01-16 08:00] VITALS: BP 92/55; PULSE 72; RESP 16; TEMP 36.6
[2023-01-16] MEDS: Senna/Docusate Sodium 1 Tablet PO (08:14)
[2023-01-16] MEDS: oxyCODONE 5 MG Tablet PO (08:17)
--- NOTE | 2023-01-16 08:23 | PCM.DC.SUM ---
Providers Date of Admission: 01/14/23 Primary Care Physician: Lea Bender PA-C Reason For Visit: REPEAT C SECTION Diagnosis Discharge Diagnosis (1) delivery delivered: Status: Acute Code(s): O82 - Encounter for delivery without indication Medications at Discharge Home Medications acetaminophen 500 mg tablet 500 - 1,000 mg PO Q6H PRN PRN pain 09/26/20 vits,calcium no.78-iron fumarate-folic acid 29 mg-1 mg tablet 1 tab PO DAILY 09/26/20 docusate sodium 100 mg capsule 100 mg PO BID PRN PRN Constipation #30 caps 09/29/20 ibuprofen 600 mg tablet 600 mg PO Q6H PRN Pain #60 tabs 09/29/20 pantoprazole 20 mg tablet,delayed release 20 mg PO DAILY heartburn 01/14/23 oxycodone 5 mg tablet 5 - 10 mg PO Q4H PRN PRN Pain Score 4-10 5 days #14 tabs 01/16/23 Hospital Course Operations section Summary of Care Provided Hospital Course: Patient here for scheduled repeat section. Hospital course was uneventful. Physical Exam Narrative Patient seen at bedside. Feeling good. Pain controlled with PO medications. Ambulating and voiding without difficulty. Passing flatus. Denies any headache, vision changes, SOB or CP. Desires discharge home today. Bottle feeding. Const alert and no apparent distress General Appearance: cooperative and comfortable Exam Limitations: no limitations HEENT normocephalic Eyes General Eye: normal appearance of both eyes Neck full ROM General: normal visual inspection Chest Chest: symmetrical chest wall rise Resp normal respiratory effort and normal air movement Effort and Inspection: symmetric chest movement Auscultation: clear to auscultation bilaterally Cardio regular rate and regular rhythm GI normal to inspection, nondistended, normoactive bowel sounds Back/Spine normal ROM Extremity full ROM and no calf tenderness General Extremity: normal exam except as noted Skin no rashes or lesions noted Neuro CN's II-XII intact bilaterally Psych mental status grossly normal Weight / BMI Weight Weight: 141 lb 5.061 oz Body Mass Index (BMI) 24.3 ABG / Lab / Microbiology Data Result Diagrams: 01/16/23 05:38 Laboratory: Laboratory Results - last 24 hr 01/16/23 05:38: WBC 10.8, RBC 2.98 L, Hgb 8.3 L, Hct 26.5 L, MCV 88.9, MCH 27.9, MCHC 31.3 L, RDW Std Deviation 45.2 H, RDW Coeff of Romy 14.0, Plt Count 165, MPV 9.3 D/C Instructions Discharge Diet: No restrictions Discharge Activity: May Not Drive (2 weeks) and May Shower May resume sexual activity in: 6-8 weeks Weight Bearing Status: Weight bearing as tolerated Call your doctor if you observe: Fever of 101 or Higher, Inability to urinate, Inability to have a bowel movement, Using more than 1 pad per hour, Shortness of breath, Dizziness, Chest pain, Calf discomfort and Uncontrolled pain Change Dressing in: leave in place till F/U Please Follow Up With: Shantel Stauffer MD When: 1 week for dressing removal Meaningful Use Info Meaningful Use Diagnoses (Choose all that apply): None applicable Discharge Plan Admission Admit Date/Time: 01/14/23 09:10 Primary Reason for Your Visit: Repeat section Attending Provider: Shantel Stauffer Primary Care Provider: Lea Bender Discharge Orders/Prescriptions Prescriptions: New oxycodone 5 mg Tablet 5 - 10 mg PO Q4H PRN PRN (Reason: Pain Score 4-10) 5 Days Qty: 14 0RF Continued acetaminophen 500 MG tablet 500 - 1,000 mg PO Q6H PRN PRN (Reason: pain) vit,[id number] 1 TABLET tablet 1 tab PO DAILY docusate sodium 100 MG capsule 100 mg PO BID PRN PRN (Reason: Constipation) Qty: 30 1RF Rx Instructions: use to keep stools soft ibuprofen 600 MG tablet 600 mg PO Q6H PRN (Reason: Pain) Qty: 60 1RF pantoprazole 20 mg Tablet,Delayed Release (Dr/Ec) 20 mg PO DAILY Referrals / Follow Up: Lea Bender PANbaC [Primary Care Provider] - Disposition Disposition (needs filled in before D/C Order can be placed): Home, Self Care
[2023-01-16 14:47] LABS: Pathology Specimen OB SEE PATHOLOGY REPORT
== END 2023-01-16 11:00 | disposition home or self-care (01) | DRG 787 ==
PROVIDERS: Obstetrics & Gynecology; Admitting Provider Obstetrics & Gynecology; PCP Family Medicine; Visit Provider Obstetrics & Gynecology
PROC: 10D00Z1 Extraction of Products of Conception, Low, Open Approach (ICD-10-PCS; CPT 59514; principal; 2023-01-14 11:45)
DX: O34.211 Maternal care for low transverse scar from previous cesarean delivery (principal); L02.215 Cutaneous abscess of perineum; O26.23 Pregnancy care for patient with recurrent pregnancy loss, third trimester; O69.81X0 Labor and delivery complicated by cord around neck, without compression, not applicable or unspecified; Z86.16 Personal history of COVID-19; Z3A.39 39 weeks gestation of pregnancy; Z37.0 Single live birth; O99.72 Diseases of the skin and subcutaneous tissue complicating childbirth
CPT/HCPCS: 59050; 85025; 85027; 86850; 86900; 86901; 88305; 99221; J7120; A4216; G0378; J2405

== ENCOUNTER → 2024-01-27 | Outpatient (CLI) | payer OTHER, SELFPAY ==
[2024-01-27 15:26] LABS: EXAGEN MAILED SPECIMEN
[2024-01-27 17:43] LABS: Absolute Lymphocyte Count 2.66 X10^3/uL (0.83-4.51); Absolute Neutrophil Count 3.5 X10^3/uL (2.0-7.7); Eosinophil# 0.05 X10^3/uL; Eosinophils% 0.7 % (0-5); Hematocrit 38.4 % (37-47); Hemoglobin 12.8 g/dL (12.0-15.0); Lymphocyte # 2.66 X10^3/ul (0.83-4.51); Lymphocyte % 39.4 % (19-41); Mean Corp Hgb Conc 33.3 g/dL (32-36); Mean Corpuscular Hgb 28.5 pg (27.0-32.0); Mean Corpuscular Volume 85.5 fL (81-99); Mean Platelet Vol. 9.9 fl (6.2-12.0); Monocyte# 0.51 X10^3/uL; Monocyte% 7.6 % (0-10); NRBC Flagged by Analyzer 0 % (0-5); Neutrophil # 3.52 X10^3/uL (2.7-7.7); Neutrophil % 52.2 % (47-70); Platelet Count 270 K/mm3 (150-450); RBC Distribution Width CV 12.4 % (11.6-14.6); RBC Distribution Width SD 38.5 fl (35.1-43.9); Red Blood Count 4.49 M/mm3 (4.2-5.4); White Blood Count 6.8 K/mm3 (4.4-11.0)
[2024-01-27 17:58] LABS: Protein, Urine (Random) 9.8 mg/dL (<11.9); Protein:Creat Ratio 75 mg/g CRE (0-200)
[2024-01-27 17:59] LABS: Color, Urine Yellow (Yellow); Glucose, Dipstick Normal (Normal); Ketone-Dipstick Negative (Negative); Leukocyte Esterase-Dipstick Negative /ul (Negative); Nitrite-Dipstick Negative (Negative); Occult Blood-Urine Negative /ul (Negative); Protein-Dipstick Negative (Negative); Urine Bilirubin Dipstick Negative (Negative); Urine Clarity Clear (Clear); Urine Urobilinogen Normal (Normal); Urine pH 6.5 (5.0 - 8.0)
[2024-01-27 18:20] LABS: ALB/GLOB Ratio 1.2 RATIO (0.9-2.4); AST(SGOT) 14 U/L (15-37); Alanine Aminotransfer ALT/SGPT 21 U/L (13-56); Alkaline Phosphatase 61 U/L (45-117); Anion Gap 6 (5-15); BUN 14 mg/dL (7-18); BUN/Creat Ratio 20.5 RATIO (10-20); Calcium,Total 9.2 mg/dL (8.5-10.1); Chloride 106 mmol/L (98-107); Creatinine, Serum 0.68 mg/dL (0.55-1.02); EST Glomerular Filtration Rate 104 mL/min (>60); Est Glom Filt Rate - Afr Amer 126 mL/min (>60); Globulin 3.3 g/dL (2.2-4.2); Glucose 109 mg/dL (74-106); Potassium 3.7 mmol/L (3.5-5.1); Protein, Total 7.3 g/dL (6.4-8.2); Sodium Level 138 mmol/L (136-145)
[2024-01-27 18:40] LABS: Hepatitis B Surface Antibody Reactive; Hepatitis B Surface Antigen Non-Reactive (Nonreactive); Hepatitis C Antibody Non-Reactive (Nonreactive)
--- OUTSIDE RECORDS SUMMARY | 2024-01-27 21:50 | XMS RPT_ITS | CCD ---
Author Name Unknown Address [address] [place] [address] Organization [facility] Care Team Providers Care Rn Maternal Child Name Role Phone Unavailable Primary Care Provider Unavailmisael APONTEAREDITA CNP Attending Unavailabl e BERNAL, EDITA NOWAK Primary Care Unavailabl e BERNAL, EDITA NOWAK Admitting Unavailabl e Unavailable Primary Care Provider Unavailabl e JENN HUTCHINS Attending Unavailable WISWELL, KRISTINE Referring Unavailable WISWELL, KRISTINE Attending Unavailable NEYHART GUERRA, GABRIEL Attending Unavail able WISWELL, KRISTINE Attending Unavailable SEBASTIEN YADAV Attending Unavailable WISWELL, KRISTINE Referring Unavailable YADAVSEBASTIEN Attending Unavailable WISWELL, KRITSINE Referring Unavailable WISWELL, KRISTINE Referring Unavailable WISWELL, KRISTINE Attending Unavailable WISWELL, KRISTINE Referring Unavailable NEYDERRICKT CRUZITO GUERRARE Attending Unavail able NEYDERRICKT CRUZITO GUERRARE Attending Unavail able CUONG JENN Referring Unavailable NEYHART GUERRA, GABRIEL Attending Unavail able PLOTTS, JENN Referring Unavailable NEYHART GUERRA, GABRIEL Attending Unavail able NEYHART GUERRA, GBARIEL Attending Unavail able WISWELL, KRISTINE Attending Unavailable PLOTTSJENN Attending Unavailable NEYHART GUERRA, GABRIEL Attending Unavail able NEYHART GUERRA GABRIEL Attending Unavail able SEBASTIEN YADAV Attending Unavailable WISWELL, KRISTINE Referring Unavailable PLOTTSEJNN Attending Unavailable WISWELL, KRISTINE Referring Unavailable NEYHART GUERRA, GABRIEL Attending Unavail able DIDIER AGARWAL Attending Unavailable DIDIER AGARWAL Referring Unavailable Didier Borden PA-C Unavailable [phone] ([place]), Mathew [facility] Unavailable ENT Provider Unavailable Unavailable Rheumatolgy Provider Unavailable Unavailable Braden Garcia MD Unavailable Steph Cuello MA Unavailable Unavailable Patrick WEST, Lea Suazo Unavailable Unavaila Edita Valle MA Unavailable Unavailable Unavailable Unavailable Krystle Rogers PA-C Unavailable [phone] Allergies Allergy Classification Reported Allergen(s) Allergy Type Date of Onset Reaction(s) Facility (20 sources) Azithromycin; Translations: [AZITHROMYCIN] Drug Allergy 03-30-2019 [facility] (20 sources) Ethinyl Estradiol / Levonorgestrel; Translations: [LEVONORGESTREL-E THINYL ESTRAD] Drug Allergy 03-30-2019 [facility] (3 sources) Azithromycin *CHEMICALS* [facility] [employer] [facility]. Medications Current Medications Medication Drug Class(es) Dates Sig (Normalized) Sig (Original) ciprofloxacin 3 mg/ml ophthalmic solution (1 source) Quinolone Antimicrobial Start: 11-17-2023 take 2 drop(s) into the eye(s) every two hours, then take 2 drop(s) into the eye(s) every four hours ciprofloxacin 0.3 % eye drops ; 2 (two) Drop(s) as directed for 0 days Quantity: 10 {Milliliter} Refills: 0 Ordered: 17-Nov-2023 LORE Borden Start: 17-Nov-2023 Comments: 2 drops every 2hrs while awake x2 daysthen 2 drops every 4hrs x5 days. Completed/Discontinued Medications Medication Drug Class(es) Dates Sig (Normalized) Sig (Original) amoxicillin 875 mg / clavulanate 125 mg oral tablet (6 sources) Penicillin-class Antibacterial Start: 11-06-2022 End: 11-16-2022 take 1 tablet by mouth twice daily Amoxicillin-Pot Clavulanate 875-125 MG Oral Tablet ; 1 (one) Tablet two times daily for 10 days Quantity: 20 {Tablet} Refills: 0 Ordered: 06-Nov-2022 LORE Borden Start: 06-Nov-2022 End: 16-Nov-2022 Status: Inactive Problems Active Problems Problem Classification Problem Date Documented Date Episodic/Chronic Acute and chronic tonsillitis (6 sources) Amygdalolith; Translations: [Other chronic diseases of tonsils and adenoids] 11-10-2023 Chronic Immunizations and screening for infectious disease (10 sources) Vaccination needed; Translations: [Encounter for immunization] Onset: 02-20-2023 Episodic Inflammation; infection of eye (except that caused by tuberculosis or sexually transmitteddisease) (12 sources) Viral conjunctivitis; Translations: [Viral conjunctivitis, unspecified] 11-10-2023 Episodic Other and unspecified benign neoplasm (6 sources) Melanocytic nevus; Translations: [Melanocytic nevi, unspecified] 11-10-2023 Episodic Other complications of (1 source) Nausea and vomiting; Translations: [Vomiting of , unspecified] Episodic Other complications of (1 source) Other specified related conditions, unspecified trimester; Translations: [Other specified related conditions, unspecified trimester] Onset: 12-12-2022 Episodic Other connective tissue disease (6 sources) Pain of bilateral hands; Translations: [Pain in right hand] 11-10-2023 Episodic Other female genital disorders (2 sources) H/O: miscarriage; Translations: [Recurrent loss] Episodic Other female genital disorders (1 source) Vaginal irritation; Translations: [Other specified noninflammatory disorders of vagina] Episodic Other and delivery including normal (10 sources) Early stage of ; Translations: [Encounter for supervision of normal , unspecified, unspecified trimester] Onset: 07-02-2022 Episodic Other screening for suspected conditions (not mental disorders or infectious disease) (8 sources) Patient encounter status; Translations: [Encounter for screening, unspecified] Onset: 07-02-2022 Episodic Other skin disorders (6 sources) Skin lesion; Translations: [Disorder of the skin and subcutaneous tissue, unspecified] 11-10-2023 Episodic Other upper respiratory infections (18 sources) Upper respiratory infection; Translations: [Acute upper respiratory infection, unspecified] 11-06-2022 Episodic Residual codes; unclassified (1 source) Gestation period, 12 weeks; Translations: [12 weeks gestation of ] Episodic Residual codes; unclassified (1 source) Gestation period, 16 weeks; Translations: [16 weeks gestation of ] Episodic Residual codes; unclassified (2 sources) Gestation period, 18 weeks; Translations: [18 weeks gestation of ] Episodic Residual codes; unclassified (2 sources) Gestation period, 22 weeks; Translations: [22 weeks gestation of ] Episodic Residual codes; unclassified (1 source) Gestation period, 26 weeks; Translations: [26 weeks gestation of ] Episodic Residual codes; unclassified (1 source) Gestation period, 28 weeks; Translations: [28 weeks gestation of ] Episodic Residual codes; unclassified (1 source) Gestation period, 30 weeks; Translations: [30 weeks gestation of ] Episodic Residual codes; unclassified (1 source) Gestation period, 32 weeks; Translations: [32 weeks gestation of ] Episodic Residual codes; unclassified (1 source) Gestation period, 34 weeks; Translations: [34 weeks gestation of ] Episodic Residual codes; unclassified (1 source) Gestation period, 36 weeks; Translations: [36 weeks gestation of ] Episodic Residual codes; unclassified (1 source) Gestation period, 37 weeks; Translations: [37 weeks gestation of ] Episodic Residual codes; unclassified (1 source) Gestation period, 38 weeks; Translations: [38 weeks gestation of ] Episodic Residual codes; unclassified (1 source) 39 weeks gestation of ; Translations: [39 weeks gestation of ] Onset: 01-07-2023 Episodic Residual codes; unclassified (1 source) 38 weeks gestation of ; Translations: [38 weeks gestation of ] Onset: 12-31-2022 Episodic Unclassified (1 source) Rubella non-immune status, antepartum; Translations: [Rubella non-immune status, antepartum] Onset: 07-03-2022 Unclassified (3 sources) Number of Children 11-10-2023 Past or Other Problems Problem Classification Problem Date Documented Date Episodic/Chronic Hemorrhage during ; abruptio placenta; placenta previa (2 sources) Hemorrhage in early , unspecified; Translations: [Threatened ] Onset: 07-02-2022 Episodic Other complications of (20 sources) 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; Translations: [ care for patient with recurrent loss, unspecified trimester] Onset: 05-26-2022 05-26-2022 Episodic Other complications of (20 sources) Rubella non-immune; Translations: [Supervision of other high risk pregnancies, unspecified trimester] Onset: 07-03-2022 07-03-2022 Episodic Other complications of (1 source) Supervision of other high risk pregnancies, unspecified trimester; Translations: [Rubella non-immune status, antepartum] Onset: 07-03-2022 Episodic Previous (20 sources) ; Translations: [Maternal care for unspecified type scar from previous delivery] Onset: 11-28-2021 11-28-2021 Episodic Residual codes; unclassified (20 sources) Family history of hereditary disease; Translations: [Family history of other congenital malformations, deformations and chromosomal abnormalities] Onset: 11-28-2021 11-28-2021 Episodic Residual codes; unclassified (1 source) Personal history of other complications of , childbirth and the puerperium; Translations: [History of miscarriage] Onset: 07-02-2022 Episodic Unclassified (3 sources) Eye symptoms - The onset of the eye symptoms has been acute and has been occurring in an increasing pattern for 2 days. The course has been gradually worsening. The eye symptoms are described as mild to moderate and involve both eyes. The symptoms are described as itching and drainage. There has been associated eye discharge, itchy eyes, nasal stuffiness, runny nose, sinus pain and watery eyes, while there has been no blurred vision, eye pain or headache. Note for Eye symptoms : Patient reports that her cold symptoms started last week and her eye symptoms started over the last 2 days. 11-10-2023 Unclassified (3 sources) Hand pain - The onset of the hand pain has been acute and has been occurring in an intermittent pattern for 3 weeks. The course has been recurrent. The hand pain is characterized as a moderate dull aching (as well as stiff and sore). The hand pain is described as being located in the entire hand (Bilaterally, but worse in the right). The hand pain is aggravated by physical activity, any movement, work duties and making a fist. The pain has been relieved by nothing (Ibuprofen has not been helpful). The symptoms have been associated with painful ROM, but have not been associated with muscle weakness, joint swelling, warmth, erythema, burning sensation, fever, chills or other joint complaints. There have been no previous diagnostic tests. There has been no previous evaluations. Note for Hand pain : Patient does not know if she has a family history of RA. She denies any recent tick bites. 10-07-2023 Unclassified (3 sources) Moles - Patient would like to have moles looked at today. She has had moles several years, my whole life . She has one mole located on her back that she would like to have removed. Is raised and while she was with daughter about 3 years ago, the mole became irritated and did bleed some. She has several moles located on both arms, some of the moles are raised. She has a black area located on the left side of chest.In the past, she used to go to tanning often. Does not go as often now. She has not noted any color or size changes in these moles. 09-14-2023 Unclassified (3 sources) Cold Symptoms - Symptoms include nasal congestion, scratchy throat, dry cough and productive cough, but do not include sneezing, ear pain, wheezing, fever, chills or headache. The onset was sudden 4 day(s) ago. The symptoms occur constantly. The patient describes this as moderate in severity and worsening. Current treatment includes an oral decongestant and acetaminophen. Note for Upper respiratory infection : She is scheduled for C/S in 2 days and wanted to make sure she was negative for Covid or flu prior to procedure. 01-12-2023 Unclassified (3 sources) Cold Symptoms - Symptoms include nasal congestion, runny nose, ear fullness, sore throat, productive cough, general malaise (patient reports fatigue, but denies any body aches) and headache (on and off), but do not include ear pain, dry cough, wheezing, fever, chills or facial pain. The onset was gradual 1 week(s) ago (possibly longer). The symptoms occur constantly. The patient describes this as moderate in severity and unchanged. Current treatment includes non-prescription cold medication (cough drops) and acetaminophen. Risk factors do not include smoking. The patient has been exposed to an individual with similar symptoms (her child). Patient denies history of seasonal allergies, recurrent sinusitis, recurrent strep pharyngitis, tonsillectomy or recurrent ear infections. Note for Upper respiratory infection : Patient is currently 30 weeks . 11-06-2022 Unclassified (3 sources) Cold Symptoms - Symptoms include sneezing, nasal congestion, runny nose, sore throat (tonsil stones), general malaise (tiredness, no body aches) and headache, but do not include ear pain, ear fullness, scratchy throat, hoarseness, dry cough, productive cough, wheezing, fever, chills or facial pain. The onset was gradual 7 week(s) ago (Sore throat and tonsil stones started 7 weeks ago. Cold symptoms started 2 weeks ago.). The symptoms occur constantly. The patient describes this as moderate in severity and unchanged. Current treatment includes non-prescription cold medication, rest and NSAIDs. Risk factors do not include child in daycare or smoking. The patient has not been exposed to an individual with a cough, an individual with an upper respiratory infection, an individual with similar symptoms, an individual with strep or secondhand smoke. Medical history includes seasonal allergies, but patient denies history of recurrent sinusitis, recurrent strep pharyngitis, asthma, tonsillectomy (Has long history of recurrent tonsil stones. Reports that the pain has not lasted this long in the past.) or recurrent ear infections. 09-06-2021 Results Test Name Value Interpretation Reference Range Facil ity Vital Signs Date Time Vital Sign Value Performing Clinician Faci lity 11-10-2023 09:50-0500 Body height 162.56 cm Steph Cuello MA [facility] [employer] [facility], [facility].; [email or web address], [employer] 11-10-2023 09:50-0500 Body mass index (BMI) [Ratio] 21.28 kg/m2 Steph Cuello MA [facility] [employer] 11-10-2023 09:50-0500 Body surface area Derived from formula 1.6 m2 Steph Cuello MA [facility], [facility].; [employer], [facility]. 11-10-2023 09:50-0500 Body temperature 97.7 [degF] Steph Cuello MA [employer] [facility], [facility].; [email or web address], [employer]. 11-10-2023 09:50-0500 Body weight 56.25 kg Steph Cuello MA [employer] [facility], [facility].; [employer], [facility]. 11-10-2023 09:50-0500 Diastolic blood pressure 74 mm[Hg] Steph Cuello MA [employer] [facility], [email or web address], [employer] Encounters Encounter Date Encounter Type Care Provider Facility Start: 11-17-2023 End: 11-17-2023 Medication Didier Borden PA-C [facility] Start: 11-13-2023 End: 11-13-2023 Medication Didier Borden PA-C [facility] Start: 11-10-2023 End: 11-10-2023 Office outpatient visit 15 minutes Didier Borden PA-C [facility] Start: 10-12-2023 End: 10-12-2023 Patient encounter procedure Didier Borden PA-C [facility] Start: 10-07-2023 End: 10-07-2023 Office outpatient visit 15 minutes Didier Borden PA-C [facility] Start: 09-14-2023 End: 09-14-2023 Office outpatient visit 25 minutes Didier Borden PA-C [facility] Start: 03-31-2023 ambulatory Gabrielramirez Guerra MD Work Phone: OB/Gynecology Procedures Date Procedure Procedure Detail Performing Clinician Start: 09-14-2023 End: 09-14-2023 Shaving skin lesion 1 trunk/arm/leg diam 0.5cm/< Didier J Borden PA-C Work Phone: Start: 01-23-2023 Urnls dip stick/tabl et rgnt auto w/o microscopy Gabriel Prashanth Guerra MD Work Phone: Start: 12-31-2022 URINE OB DIP B/O Gabriel Guerra MD Work Phone: Start: 12-24-2022 URINE OB DIP B/O Judith Hutchins APRN.CNM Work Phone: Start: 12-17-2022 URINE OB DIP B/O Gabriel Guerra MD Work Phone: Start: 12-03-2022 URINE OB DIP B/O Gabriel Guerra MD Work Phone: Start: 11-19-2022 URINE OB DIP B/O Gabriel Guerra MD Work Phone: Start: 11-05-2022 URINE OB DIP B/O Gabriel Guerra MD Work Phone: Start: 10-22-2022 URINE OB DIP B/O Gabriel Guerra MD Work Phone: Start: 10-08-2022 INFLUENZA VACCINE QUADRIVALENT 6 MO - 64 YRS IM Gabriel Guerra MD Work Phone: Start: 10-08-2022 URINE OB DIP B/O Gabriel Guerra MD Work Phone: Start: 09-10-2022 URINE OB DIP B/O Judith Hutchins BOND TRADER.CNM Work Phone: Start: 09-10-2022 Us preg uterus after 1st trimest / gestation Kristine Cameron MD Work Phone: Start: 08-13-2022 URINE OB DIP B/O Kristine guerra MD Work Phone: Start: 08-13-2022 Us preg uterus after 1st trimest / gestation Kristine Cameron MD Work Phone: Start: 07-30-2022 URINE OB DIP B/O Judith Hutchins BOND TRADER.CNM Work Phone: Start: 07-02-2022 Antibody screen LEIDA HUTCHINS Plan of Treatment Date Care Activity Detail Author Start: 10-22-2032 Urine microalbumin profile DTAP,TDAP,TD (3 - Td or Tdap) [facility] Start: 06-27-2030 Urine microalbumin profile DTAP,TDAP,TD (2 - Td or Tdap) [facility] Start: 02-21-2028 HPV TESTING HPV TESTING [facility] Start: 02-21-2028 PAP TESTING PAP TESTING [facility] Start: 03-30-2024 HPV TESTING HPV TESTING [facility] Start: 03-30-2024 PAP TESTING PAP TESTING [facility] Start: 11-16-2022 DEPRESSION ASSESSMENT DEPRESSION ASS ESSMENT [facility] Start: 09-10-2022 End: 11-10-2022 CBC W Auto Differential panel - Blood CBC + DIFF Lab Routine with history of section, antepartum Expected: 09/10/2022, Expires: 11/10/2022 [facility] Work Phone: Immunizations Immunization Date Immunization Notes Care Provider Fa yoselin 10-22-2022 tetanus toxoid, redu henrry diphtheria toxoid, and acellular pertussis vaccine, adsorbed Gabriel Guerra MD Work Phone: [facility] 10-08-2022 influenza, injectabl e, quadrivalent, contains preservative Gabriel Guerra MD Work Phone: [facility] 08-22-2020 influenza, injectabl e, quadrivalent, contains preservative Kristine Cameron MD Work Phone: [facility] 06-27-2020 tetanus toxoid, redu henrry diphtheria toxoid, and acellular pertussis vaccine, adsorbed Kristine Cameron MD Work Phone: [facility] Payers Date Payer Category Payer Unknown [employer] [id number] 2022-Present [phone] [address] [place] [address] PPO [id number] 2022 Unknown [id number] 2022 Unknown [id number] 1990 Unknown [id number] Unknown [id number] Social History Date Type Detail Facility Start: 03-30-2019 End: 08-13-2022 Tobacco smoking status NHIS Never smoked tobacco [facility] Start: 03-30-2019 End: 08-13-2022 Tobacco use and exposure Smokeless tobacco non-user [facility] Start: 03-19-2022 End: 02-20-2023 Alcohol intake Ex-drinker (finding) [facility] Start: 03-19-2022 End: 02-20-2023 [facility] intake [facility] Start: 02-23-2020 History SDOH Alcohol Frequency 3 [facility] Start: 03-30-2019 History SDOH Alcohol Comment seldom [facility] Start: 02-23-2020 History SDOH Financial 4 [facility] Start: 02-23-2020 History SDOH Food Worry 1 [facility] Start: 02-23-2020 History SDOH Transpo rt Med 2 [facility] Start: 02-23-2020 Education 17 [facility] Start: 1990 Sex Assigned At Female [facility] Start: 04-23-2022 [facility] Start: 05-16-2022 End: 08-13-2022 Exposure to SARS-CoV-2 (event) Not sure [facility] Work Phone: Tobacco smoking consumption unknown [facility] Work Phone: Goals Date Patient Goal Desired Activity /State Clinical Notes 09-17-2020 to 02-20-2023 Addendum Note - Didier Agarwal MD - 02/20/2023 10:02 AM EDTAddendum Note - Geovanna Garcia Ma - 02/20/2023 9:47 AM EDChio Agarwal MD - 02/20/2023 9:08 AM EDTPatient Instructions Note Date & Type Note Facility 02-20-2023 Note Case was reviewed in consultation with Dr. Nori Gonzalez, who concurs. [facility] documented as of this encounter (statuses as of 02/20/2023) [facility]08-18-[facility]22 History of Past illness Narrative* Problem Noted Date Resolved Date Rubella non-immune status, antepartum 07/03/2022 02/20/2023 Overview: 07/03/22 Equivocal at time of NOB. MMR . SW Previous recurrent miscarria ges affecting , antepartum 05/26/2022 02/20/2023 Overview: 05/26/2022atient is 6 para 1 with a history of 4 miscarriages. She denies any bleeding or pain this . She is currently using Prometrium vaginally and taking a baby aspirin. TKRN with history of section, ante 11/28/2021 02/20/2023 Overview: 06/04/22 Discussed r/b/a to TOLAC vs repeat section. She is undecided. SW Risks/benefits/alternatives discussed with patient regarding trial of labor and potential for uterine rupture. Risks include but are not limited to maternal hemorrhage, risk of injury to adjacent organs including potential hysterectomy. risks discussed as well, including potential for permanent neurologic injury or . Overall uterine rupture risk is less than 1% after one section. Is a trial of labor contraindicated for this patient? No If no, calculate rate of success using pre-labor factors: http://www[facility] [place]edu/mfmu/vagbirth.html Predicted chance of vaginal after : 79.9% Patient's plan for delivery mode: Undecided Kristine Cameron, DO 05/26/2022 Patient has a history of a for intolerance to labor. She is considering a . Will plan on ordering EMMIs for and once viability is established. TKRN Family history of congenital or genetic conditio n 11/28/2021 02/20/2023 Overview: 11/28/2021FOB's brother with Brittle Hair Syndrome. Patient does not believe her had genetic testing to see if he is a carrier. FOB's uncle and some other relatives with bleeding disorder. Patient is unaware of the specifics. Father of the baby's nephew with Hirschsprung's disease and dwarfism. Patient has a third cousin with Down syndrome. Patient desires nuchal ultrasound. Unsure if she wants to do sequential screening/maternity 21 test. Patient declined genetic carrier screening testing.Lorri Cedillo RN Lab test positive for detection of COVID-19 viru s 09/17/2020 10/30/2020 Overview: Tested positive for COVID on 09/14/2020 at [facility]. Mild symptoms. SW Current with histo ry of spontaneous during prior 02/23/2020 10/04/2020 Overview: 02/23/2020Patient is with history of miscarriage. Denies any bleeding or pain this .TKRN Family history of genetic disease 02/23/2020 10/30/2020 Overview: 02/23/2020 FOB's brother with Brittle Hair Syndrome. Patient does not believe her had genetic testing to see if he is a carrier. FOB's uncle and some other relatives with bleeding disorder.Patient unsure of specifics. Patient declines aneuploidy screening and genetic carrier screening testing. TKRN Nausea/vomiting in 02/23/2020 Overview: 02/23/2020Patient is complaining of nausea in . Denies vomiting. Dietary considerations discussed . Vitamin B6 recommended. Advised patient to call/come in if she is unable to keep any food or fluids down in a 24-hour period. TKRN documented as of this encounter (statuses as of 04/01/2023) [facility]08-17-2022 NoteHNO ID: [id number] Author: Jennifer Tadeo LPN Service: ? Author Type: ? Type: Progress Notes Filed: 07/03/2022 8:25 AM Note Text: Patient here for First Trimester Screening. See ultrasound report for details. Options for genetic screening and diagnosis discussed with the patient. Patient opts for first trimester screening and the sequential screening protocol. Limitations of screening tests discussed with the patient. Kristine Cameron MD Patient here for First Trimester Screening. See ultrasound report for details. Options for genetic screening and diagnosis discussed with the patient. Patient opts for first trimester screening and the sequential screening protocol. Limitations of screening tests discussed with the patient. Kristine Cameron [facility]08-17-2022 Miscellaneous Notes* Quick Notes - Kristine Cameron MD - 07/02/2022 1:54 PM EDT SW- Doing ok. Having nausea that is controlled with Pepcid and Zofran. Noticing hypersalivation tooand recommend hard candies/gum for this. NT and blood work today. Already has anatomy US scheduled.No pain, vb, lof. RTO 4 wks. Kristine Cameron DO [facility] History of Present illness Narrative* Jennifer Tadeo LPN - 07/02/2022 1:52 PM EDT Patient here for First Trimester Screening. See ultrasound report for details. Options for genetic screening and diagnosis discussed with the patient. Patient opts for first trimester screening and the sequential screening protocol. Limitations of screening tests discussed withthe patient. Kristine Cameron MD Patient here for First Trimester Screening. See ultrasound report for details. Options for genetic screening and diagnosis discussed with the patient. Patient opts for first trimester screening and the sequential screening protocol. Limitations of screening tests discussed withthe patient. Kristine Cameron MD documented in this encounterL[facility]08-17-2022 Instructions* Patient Instructions* Jennifer Tadeo LPN - 07/02/2022 1:33 PM EDT SEQUENTIAL SCREENINGS [facility] offers sequential screenings for women who are interested in screenings for chromosomal abnormalities and certain defects during a . The sequential screen combinesultrasound and blood tests to determine the risk of chromosomal abnormalities, including Down's Syndrome (Trisomy 21) and Trisomy 18, as well as open neural tube defects including spina bifida. Ultrasound examination is performed between 11 weeks and 13 weeks gestational age. Blood tests are drawn after the ultrasound and again later in the between 15 and 21 weeks gestational age. Please let your physician know if you are interested in this testing. It will require an appointment withour auto body technician. This is not an ultrasound performed by a physician in our office during a routine visit. SIGNS AND SYMPTOMS OF LABOR 1. Contractions every 10 minutes or more often 2. Clear, pink, or brownish fluid (water) leaking from vagina 3. Feeling that baby is pushing down, pressure 4. Low, dull backache 5. Cramps that feel like a period 6. Cramps with or without diarrhea If you notice any of the above symptoms, contact our office at [phone] and ask to speak with anurse. After hours, you can call doctors registry at [phone] OR call [facility] at [phone] ask to have the doctor iron worker paged. If you consider this an emergency, dial 7-9-1 or go to your nearest emergency department. NEED HELP? Are you dealing with a violent or abusive relationship? Are you a victim of rape or sexual assult? Call [facility] ([place]) 24 hour Crisis Hotline: 387.533.5246 or 361-959-2433. MANUAL Your Guide to a Healthy manual is now on-line. Visit [email or web address] to download your free copy SEQUENTIAL TESTING PROCESS Sequential Screen First Trimester Today you are currently: 12w0d weeks 07/02/2022: Ultrasound and blood test. Sequential Screen Second Trimester (16-17 Weeks Gestation) When you are called with your results, the nurse will give the optimal draw dates for the Sequential screen second trimester. Blood testing can be done at any [facility] lab. Please report to the any regional clinical director office hotel front desk agent for the Sequential Part 2 requisition and order before reporting to the lab. Your weight will need to be documented for testing. Please note: -No appointment is need for your second blood draw. -Office hours are 8 am to 4:30 pm. -Please have testing done prior to 12 noon on Thursday's -Once the sequential testing is started, in the first trimester the only follow- up will be for the sequential screen second trimester. Please don't have a Quad screen ordered by another provider. If you or your Provider have any questions please call your maternal medicine office, for east side please call [phone] or for the West side call [phone] and ask for the the nurse. Thank you. SEQUENTIAL TESTING PROCESS Sequential Screen First Trimester Today you are currently: 12w0d weeks 07/02/2022: Ultrasound and blood test. Sequential Screen Second Trimester (16-17 Weeks Gestation) When you are called with your results, the nurse will give the optimal draw dates for the Sequential screen second trimester. Blood testing can be done at any [facility] lab. Please report to the any regional clinical director office hotel front desk agent for the Sequential Part 2 requisition and order before reporting to the lab. Your weight will need to be documented for testing. Please note: -No appointment is need for your second blood draw. -Office hours are 8 am to 4:30 pm. -Please have testing done prior to 12 noon on Thursday's -Once the sequential testing is started, in the first trimester the only follow- up will be for the sequential screen second trimester. Please don't have a Quad screen ordered by another provider. If you or your Provider have any questions please call your maternal medicine office, for east side please call [phone] or for the West side call [phone] and ask for the the nurse. Thank you. documented in this encounterL[facility]08-01-2022 Miscellaneous Notes* Telephone Encounter - Vanessa Marrufo RN - 06/16/2022 3:18 PM EDT Patient notified and voiced understanding. Patient will also start Pepcid 20 mg BID. Vanessa Marrufo RN * Telephone Encounter - Kristine Cameron MD - 06/16/2022 2:22 PM EDT If acid reflux associated with nausea can start Pepcid 20 mg BID If she feels like she is producing more saliva, to try hard candies Will send in Zofran PRN for nausea * Telephone Encounter - Lorri Cedillo RN - 06/16/2022 11:39 AM EDT Patient is 9w5d . C/O Acid reflux. Had it last until 15 weeks and at the end of . Vitamin B6 did not help. Tums helps a little but Im sick of the taste Patient wondering what you recommend for this. Zofran helped last with nausea . Willing to try that but feels like she has so much mucous and I feel like I am drowning in it . Denies vomiting. Just feels nauseated from the mucous.Patient is pushing fluids. Please advise documented in this encounterL[facility]07-20-2022 NoteHNO ID: [id number] Author: Kristine Cameron MD Service: ? Author Type: Physician Type: Progress Notes Filed: 06/04/2022 12:45 PM Note Text: INITIAL OB ASSESSMENT OB Provider: Kristine Cameron DO HPI: Jenn Meade is a 32 year old female here to establish Obstetrical Care. Patient's last menstrual period was 04/09/2022 (exact date). from OB Dating Form. Cycle length: regular Complaints: fatigue and nausea was planned. OB History T1 L1 SAB4 IAB0 Ectopic0 Multiple0 Live Births1 Prior : yes x 1 History of 4th degree laceration: No Patient's Risk Screening for delivery: History of abnormal pap: No Prior treatment for cervical dysplasia: none. 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 No Marital Status: Partner: Name: Christiano PAST MEDICAL HISTORY Diagnosis Date - Anemia - COVID-19 2020 - Miscarriage x3 PAST SURGICAL HISTORY Procedure Laterality Date - DELIVERY ONLY 09/27/2020 - EXTRACTION, ERUPTED TOOTH OR EXPOSED ROOT (ELEVATION AND/OR FORCEPS REMOVAL) 2014 Current Outpatient Medications on File Prior to Visit Medication Sig - progesterone micronized (PROMETRIUM) 200 mg capsule Use 1 capsule vaginally twice daily. - aspirin, enteric coated (ASPIRIN, ENTERIC COATED) 81 mg EC tablet Take 81 mg by mouth once daily. - progesterone micronized (PROMETRIUM) 200 mg capsule Use 1 capsule vaginally twice daily. - Fhlbppkb-Ld-Mjj-Fe-FA ( VITAMIN) tab Take 1 tablet by mouth. No current facility-administered medications on file prior to visit. Review of Systems: GENERAL: Negative for: Fever or Chills HEENT: Negative for: Headache, Impaired Vision, Ringing in Ears, Nosebleeds NECK: Negative for: Swelling, Pain, Stiffness RESPIRATORY: Negative for: Cough, Shortness of breath, Wheezing GASTROINTESTINAL: Negative for: Heartburn, Constipation, Diarrhea, Blood in stool, Vomiting MUSCULOSKELETAL: Negative for: Muscle or joint pain, stiffness, Joint swelling NEUROLOGIC/PSYCHIATRIC: Negative for: Weakness, Paralysis, Numbness, Tingling, Tremor SKIN: Negative for: Rash, Itching GENITOURINARY: Negative for: vaginal itching, vaginal discharge, hematuria or dysuria PHYSICAL EXAM: BP 100/62 Ht 5' 4 (1.63m) Wt 118 lb 12.8 oz (53.9kg) LMP 04/09/2022 BMI 20.38 kg/(m2). GENERAL: pleasant female in no apparent distress DERMATOLOGY: Normal, without lesions, non-icteric and non-hirsute NECK: Supple, full range of motion, no adenopathy and thyroid normal CHEST: Normal inspiratory effort BREAST: soft, non-tender, symmetric, no dominant mass, normal nipple-areolar complex, no lymphadenopathy and no nipple discharge ABDOMEN: soft, non-tender and no masses NEURO: exam grossly non-focal PELVIS: External genitalia normal without lesions. Perineal body intact. No vaginal or cervical lesions. Cervix closed. Uterus 8 week size. No adnexal masses or tenderness. Clinical Pelvimetry: Pelvimetry clinically assessed as adequate Limited OB ultrasound exam: single intrauterine , positive cardiac activity and crown-rump length 7w6d OB Risk Screening: Completed, no positive findings documented. ASSESSMENT: 32 year old at 8 wks gestational age PLAN: 1) Patient oriented to practice. Discussed nutrition, folic acid supplementation, dietary guidelines, exercise, smoking, alcohol, caffeine, and drug use. Discussed routine OB labs including STD/HIV. Discussed aneuploidy screening options including serum screening and nuchal translucency. Patient desires aneuploidy at this time. NT ordered. Carrier screening discussed and declined. See problem list - discussed r/b of TOLAC vs repeat section. Follow up in 4 weeks or sooner prn. Kristine Cameron, [facility] Miscellaneous Notes* Telephone Encounter - Lorri Cedillo RN - 06/04/2022 1:19 PM EDT FYI documented in this encounterL[facility]07-20-2022 History of Present illness Narrative* Kristine Cameron MD - 06/04/2022 11:24 AM EDT INITIAL OB ASSESSMENT OB Provider: Kristine Cameron DO HPI: Jenn Meade is a 32 year old female here to establish Obstetrical Care. Patient's last menstrual period was 04/09/2022 (exact date). from OB Dating Form. Cycle length: regular Complaints: fatigue and nausea was planned. OB History T1 L1 SAB4 IAB0 Ectopic0 Multiple0 Live Births1 Prior : yes x 1 History of 4th degree laceration: No Patient's Risk Screening for delivery: History of abnormal pap: No Prior treatment for cervical dysplasia: none. 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 No Marital Status: Partner: Name: Christiano PAST MEDICAL HISTORY Diagnosis Date Anemia COVID-19 2019 Miscarriage x3 PAST SURGICAL HISTORY Procedure Laterality Date DELIVERY ONLY 09/27/2020 EXTRACTION, ERUPTED TOOTH OR EXPOSED ROOT (ELEVATION AND/OR FORCEPS REMOVAL) 2014 Current Outpatient Medications on File Prior to Visit Medication Sig progesterone micronized (PROMETRIUM) 200 mg capsule Use 1 capsule vaginally twice daily. aspirin, enteric coated (ASPIRIN, ENTERIC COATED) 81 mg EC tablet Take 81 mg by mouth once daily. progesterone micronized (PROMETRIUM) 200 mg capsule Use 1 capsule vaginally twice daily. Yutrjsep-Xa-Eof-Fe-FA ( VITAMIN) tab Take 1 tablet by mouth. No current facility-administered medications on file prior to visit. Review of Systems: GENERAL: Negative for: Fever or Chills HEENT: Negative for: Headache, Impaired Vision, Ringing in Ears, Nosebleeds NECK: Negative for: Swelling, Pain, Stiffness RESPIRATORY: Negative for: Cough, Shortness of breath, Wheezing GASTROINTESTINAL: Negative for: Heartburn, Constipation, Diarrhea, Blood in stool, Vomiting MUSCULOSKELETAL: Negative for: Muscle or joint pain, stiffness, Joint swelling NEUROLOGIC/PSYCHIATRIC: Negative for: Weakness, Paralysis, Numbness, Tingling, Tremor SKIN: Negative for: Rash, Itching GENITOURINARY: Negative for: vaginal itching, vaginal discharge, hematuria or dysuria PHYSICAL EXAM: BP 100/62 Ht 5' 4 (1.63m) Wt 118 lb 12.8 oz (53.9kg) LMP 04/09/2022 BMI 20.38 kg/(m^2). GENERAL: pleasant female in no apparent distress DERMATOLOGY: Normal, without lesions, non-icteric and non-hirsute NECK: Supple, full range of motion, no adenopathy and thyroid normal CHEST: Normal inspiratory effort BREAST: soft, non-tender, symmetric, no dominant mass, normal nipple-areolar complex, no lymphadenopathy and no nipple discharge ABDOMEN: soft, non-tender and no masses NEURO: exam grossly non-focal PELVIS: External genitalia normal without lesions. Perineal body intact. No vaginal or cervical lesions. Cervix closed. Uterus 8 week size. No adnexal masses or tenderness. Clinical Pelvimetry: Pelvimetry clinically assessed as adequate Limited OB ultrasound exam: single intrauterine , positive cardiac activity and crown-rump length 7w6d OB Risk Screening: Completed, no positive findings documented. ASSESSMENT: 32 year old at 8 wks gestational age PLAN: 1) Patient oriented to practice. Discussed nutrition, folic acid supplementation, dietary guidelines, exercise, smoking, alcohol, caffeine, and drug use. Discussed routine OB labs including STD/HIV. Discussed aneuploidy screening options including serum screening and nuchal translucency. Patient desires aneuploidy at this time. NT ordered. Carrier screening discussed and declined. See problem list - discussed r/b of TOLAC vs repeat section. Follow up in 4 weeks or sooner prn. Kristine Cameron DO documented in this encounterL[facility]07-20-2022 Instructions* Patient Instructions* Emily Frey MA - 06/04/2022 11:24 AM EDT Please select the following link to access the [facility] Your Guide to a Healthy . [email or web address] documented in this encounterLancaster [facility] Hospital07-18-2022 Miscellaneous Notes* Telephone Encounter - Lauren Lee RN - 06/02/2022 9:37 AM EDT Pt. notified. States she will hold out until Thursday. Lauren Lee RN * Telephone Encounter - Kristine Cameron MD - 06/02/2022 9:29 AM EDT Abdominal pain and nausea are listed as possible side effects with vaginal progesterone. If she is feeling miserable while using it, she can stop the medication if she desires. We have discussed r/b of vaginal progesterone for recurrent loss at appointments. If she has severe pain or bleeding, she should call. Keep scheduled appointment in 2 days, and can also discuss further at that time * Telephone Encounter - Jennifer Tadeo LPN - 06/02/2022 8:48 AM EDT Ob patient has new ob appointment 06/04/2022. Patient called stating taking that she is taking progesterone 200 mg BID at 5 am and 8:30 pm and that she is having nausea and stomach burning that beginsaround noon each day and is making her feel miserable . Patient reports that the nausea & stomach burning began at approximately 3 weeks and is getting progessively worse. Patient asking if sympt oms could be related to progesterone? documented in this encounterLanc[facility]07-11-2022 Miscellaneous Notes* Addendum Note - Vanessa Marrufo RN - 05/26/2022 3:14 PM EDT Addended by: VANESSA MARRUFO RN on: 05/26/2022 03:14 PM Modules accepted: Orders * Telephone Encounter - Vanessa Marrufo RN - 05/26/2022 3:13 PM EDT Patient notified and voiced understanding. Rx needs to go to [facility] retail pharmacy. Please resend to updated pharmacy. Vanessa Marrufo RN * Telephone Encounter - Kristine Montero APRN.CNM - 05/26/2022 3:10 PM EDT Order signed. Kristine Montero APRN.CNM * Telephone Encounter - Lorri Cedillo RN - 05/26/2022 1:09 PM EDT Patient had telephone PNOB visit. Patient of Dr. Cameron. She is 6 weeks 5 days by dates. She is 6 para 1. New OB appointment scheduled for June [address] Cameron. Patient requesting refillof Prometrium. Last prescribed by Dr. Cameron on May 05. Please advise in Dr. Cameron's absence. documented in this encounterLancaster [facility] Hospital07-11-2022 NoteHNO ID: [id number] Author: Lorri Cedillo RN Service: ? Author Type: ? Type: Progress Notes Filed: 05/26/2022 4:29 PM Note Text: # 1 - Date: 08/11/19, Sex: None, Weight: None, GA: 4w0d, Delivery: SPONTANEOUS , Apgar1: None, Apgar5: None, Living: None, Comments: No DANDC, Seen by RR # 2 - Date: 09/27/20, Sex: Female, Weight: 5 lb 13 oz (2.637 kg), GA: 40w2d, Delivery: , Low Transverse, Apgar1: 8, Apgar5: 9, Living: Living, Comments: Induced for +COVID in , EBL 800 mL, loose nuchal cord x1 # 3 - Date: 07/26/21, Sex: None, Weight: None, GA: None, Delivery: None, Apgar1: None, Apgar5: None, Living: None, Comments: No DANDC # 4 - Date: 11/2021, Sex: None, Weight: None, GA: None, Delivery: None, Apgar1: None, Apgar5: None, Living: None, Comments: None # 5 - Date: 12/2021, Sex: None, Weight: None, GA: None, Delivery: None, Apgar1: None, Apgar5: None, Living: None, Comments: None # 6 - Date: None, Sex: None, Weight: None, GA: None, Delivery: None, Apgar1: None, Apgar5: None, Living: None, Comments: None '[facility]07-11-2022 History of Present illness Narrative* Lorri Cedillo RN - 05/26/2022 1:07 PM EDT # 1 - Date: 08/11/19, Sex: None, Weight: None, GA: 4w0d, Delivery: SPONTANEOUS , Apgar1: None, Apgar5: None, Living: None, Comments: No D&C, Seen by RR # 2 - Date: 09/27/20, Sex: Female, Weight: 5 lb 13 oz (2.637 kg), GA: 40w2d, Delivery: , Low Transverse, Apgar1: 8, Apgar5: 9, Living: Living, Comments: Induced for +COVID in , EBL 800 mL, loose nuchal cord x1 # 3 - Date: 07/26/21, Sex: None, Weight: None, GA: None, Delivery: None, Apgar1: None, Apgar5: None, Living: None, Comments: No D&C # 4 - Date: 11/2021, Sex: None, Weight: None, GA: None, Delivery: None, Apgar1: None, Apgar5: None,Living: None, Comments: None # 5 - Date: 12/2021, Sex: None, Weight: None, GA: None, Delivery: None, Apgar1: None, Apgar5: None,Living: None, Comments: None # 6 - Date: None, Sex: None, Weight: None, GA: None, Delivery: None, Apgar1: None, Apgar5: None, Living: None, Comments: None ' documented in this encounterLanc[facility] Hospital07-11-2022 Miscellaneous Notes* Quick Notes - Lorri Cedillo RN - 05/26/2022 1:07 PM EDT DISTANCE HEALTH VISIT This Team Access Model visit is a phone encounter. It required patient-provider interaction for themedical decision making as documented below. Patient is 6 para 1 with a history of 4 miscarriages. She denies any bleeding or pain this . She is currently using Prometrium vaginally and taking a baby aspirin. Patient has a history of a for intolerance to labor. She is considering a . Will plan on ordering EMMIs for and once viability is established. Father of the brothers brother with brittle hair syndrome. Father the baby's nephew with Hirschsprung's disease and dwarfism. Third cousin with Down syndrome.Lorri Cedillo RN documented in this encounterLancaster Municipal Hospital06-24-2022 Miscellaneous Notes* Telephone Encounter - Lea Donis LPN - 05/09/2022 11:49 AM EDT Received approval for prometrium. Pt notified. Lea Donis LPN * Telephone Encounter - Lea Donis LPN - 05/05/2022 1:07 PM EDT Electronic PA submitted for Prometrium. Will await further instruction from pt's insurance. Lea Donis LPN documented in this encounterLancaster [facility] Hospital05-04-2022 NoteHNO ID: [id number] Author: Kristine Cameron MD Service: ? Author Type: Physician Type: Progress Notes Filed: 03/21/2022 2:32 PM Note Text: Jenn Meade is a 31 year old here for SIS. Referred by: SELF Chief Complaint: recurrent miscarriages Endometrial Biopsy: No Ultrasound: Yes Hormonal therapy: No. LMP: 03/13/22 Cycles: PERIOD REGULARITY: regular but has had recent miscarriages Contraception: none HCG: negative UNIVERSAL PROTOCOL / SAFETY CHECKLIST Procedure to be Performed: SIS Sign In: A Moment of CARE was completed. Personnel directly involved with the procedure wore the appropriate PPE (Personal Protective Equipment). Patient/Surrogate Stated/Verified: PATIENT VERIFIED(optional for EMERGENT procedures): Patient name, Date of , Relevant allergies and The intended procedure Time Out Communication: Intended patient and procedure match the source documents. Consent documented and matches the intended procedure. Sign Out: SIGN OUT (optional for EMERGENT procedures): No specimen collected. All instruments, equipment, possible retained foreign bodies accounted for. Post-procedure follow-up management communicated and Plan of Care Visit completed when applicable. PROCEDURE: EXTERNAL GENITALIA: Normal in appearance without lesions VAGINA: Normal in appearance without lesions Speculum placed into the vagina with excellent visualization of the cervix. Cervix cleaned with betadine. Anterior lip of cervix grasped with single toothed tenaculum. SIS catheter inserted into the uterus without difficulty. Speculum removed and about 15 mL sterile saline injected into the uterine cavity under ultrasound guidance. Procedure Summary: Patient tolerated procedure well. See ViewPoint for procedure results. [facility] History of Present illness Narrative* Kristine Cameron MD - 03/19/2022 2:04 PM EDT Jenn Meade is a 31 year old here for SIS. Referred by: SELF Chief Complaint: recurrent miscarriages Endometrial Biopsy: No Ultrasound: Yes Hormonal therapy: No. LMP: 03/13/22 Cycles: PERIOD REGULARITY: regular but has had recent miscarriages Contraception: none HCG: negative UNIVERSAL PROTOCOL / SAFETY CHECKLIST Procedure to be Performed: SIS Sign In: A Moment of CARE was completed. Personnel directly involved with the procedure wore the appropriate PPE (Personal Protective Equipment). Patient/Surrogate Stated/Verified: PATIENT VERIFIED(optional for EMERGENT procedures): Patient name, Date of , Relevant allergies and The intended procedure Time Out Communication: Intended patient and procedure match the source documents. Consent documented and matches the intended procedure. Sign Out: SIGN OUT (optional for EMERGENT procedures): No specimen collected. All instruments, equipment, possible retained foreign bodies accounted for. Post-procedure follow-up management communicated and Plan of Care Visit completed when applicable. PROCEDURE: EXTERNAL GENITALIA: Normal in appearance without lesions VAGINA: Normal in appearance without lesions Speculum placed into the vagina with excellent visualization of the cervix. Cervix cleaned with betadine. Anterior lip of cervix grasped with single toothed tenaculum. SIS catheter inserted into the uterus without difficulty. Speculum removed and about 15 mL sterile saline injected into the uterinecavity under ultrasound guidance. Procedure Summary: Patient tolerated procedure well. See ViewPoint for procedure results. Kristine Cameron DO documented in this encounterLancaster [facility] Hospital11-02-2020 History of Past illness Narrative* Problem Noted Date Resolved Date Lab test positive for detection of COVID-19 viru s 09/17/2020 10/30/2020 Overview: Tested positive for COVID on 09/14/2020 at [facility]. Mild symptoms. SW Current with histo ry of spontaneous during prior 02/23/2020 10/04/2020 Overview: 02/23/2020Patient is with history of miscarriage. Denies any bleeding or pain this .TKRN Family history of genetic disease 02/23/2020 10/30/2020 Overview: 02/23/2020 FOB's brother with Brittle Hair Syndrome. Patient does not believe her had genetic testing to see if he is a carrier. FOB's uncle and some other relatives with bleeding disorder.Patient unsure of specifics. Patient declines aneuploidy screening and genetic carrier screening testing. TKRN Nausea/vomiting in 02/23/2020 Overview: 02/23/2020Patient is complaining of nausea in . Denies vomiting. Dietary considerations discussed . Vitamin B6 recommended. Advised patient to call/come in if she is unable to keep any food or fluids down in a 24-hour period. TKRN documented as of this encounter (statuses as of 03/21/2022) [facility]11-02-2020 History of Past illness Narrative* Problem Noted Date Resolved Date Lab test positive for detection of COVID-19 viru s 09/17/2020 10/30/2020 Overview: Tested positive for COVID on 09/14/2020 at [facility]. Mild symptoms. SW Current with histo ry of spontaneous during prior 02/23/2020 10/04/2020 Overview: 02/23/2020Patient is with history of miscarriage. Denies any bleeding or pain this .TKRN Family history of genetic disease 02/23/2020 10/30/2020 Overview: 02/23/2020 FOB's brother with Brittle Hair Syndrome. Patient does not believe her had genetic testing to see if he is a carrier. FOB's uncle and some other relatives with bleeding disorder.Patient unsure of specifics. Patient declines aneuploidy screening and genetic carrier screening testing. TKRN Nausea/vomiting in 02/23/2020 Overview: 02/23/2020Patient is complaining of nausea in . Denies vomiting. Dietary considerations discussed . Vitamin B6 recommended. Advised patient to call/come in if she is unable to keep any food or fluids down in a 24-hour period. TKRN documented as of this encounter (statuses as of 05/09/2022) [facility]11-02-2020 History of Past illness Narrative* Problem Noted Date Resolved Date Lab test positive for detection of COVID-19 viru s 09/17/2020 10/30/2020 Overview: Tested positive for COVID on 09/14/2020 at [facility]. Mild symptoms. SW Current with histo ry of spontaneous during prior 02/23/2020 10/04/2020 Overview: 02/23/2020Patient is with history of miscarriage. Denies any bleeding or pain this .TKRN Family history of genetic disease 02/23/2020 10/30/2020 Overview: 02/23/2020 FOB's brother with Brittle Hair Syndrome. Patient does not believe her had genetic testing to see if he is a carrier. FOB's uncle and some other relatives with bleeding disorder.Patient unsure of specifics. Patient declines aneuploidy screening and genetic carrier screening testing. TKRN Nausea/vomiting in 02/23/2020 Overview: 02/23/2020Patient is complaining of nausea in . Denies vomiting. Dietary considerations discussed . Vitamin B6 recommended. Advised patient to call/come in if she is unable to keep any food or fluids down in a 24-hour period. TKRN documented as of this encounter (statuses as of 05/26/2022) [facility]11-02[facility]2020 History of Past illness Narrative* Problem Noted Date Resolved Date Lab test positive for detection of COVID-19 viru s 09/17/2020 10/30/2020 Overview: Tested positive for COVID on 09/14/2020 at [facility]. Mild symptoms. SW Current with histo ry of spontaneous during prior 02/23/2020 10/04/2020 Overview: 02/23/2020Patient is with history of miscarriage. Denies any bleeding or pain this .TKRN Family history of genetic disease 02/23/2020 10/30/2020 Overview: 02/23/2020 FOB's brother with Brittle Hair Syndrome. Patient does not believe her had genetic testing to see if he is a carrier. FOB's uncle and some other relatives with bleeding disorder.Patient unsure of specifics. Patient declines aneuploidy screening and genetic carrier screening testing. TKRN Nausea/vomiting in 02/23/2020 Overview: 02/23/2020Patient is complaining of nausea in . Denies vomiting. Dietary considerations discussed . Vitamin B6 recommended. Advised patient to call/come in if she is unable to keep any food or fluids down in a 24-hour period. TKRN documented as of this encounter (statuses as of 05/26/2022) [facility]2020 History of Past illness Narrative* Problem Noted Date Resolved Date Lab test positive for detection of COVID-19 viru s 09/17/2020 10/30/2020 Overview: Tested positive for COVID on 09/14/2020 at [facility]. Mild symptoms. SW Current with histo ry of spontaneous during prior 02/23/2020 10/04/2020 Overview: 02/23/2020Patient is with history of miscarriage. Denies any bleeding or pain this .TKRN Family history of genetic disease 02/23/2020 10/30/2020 Overview: 02/23/2020 FOB's brother with Brittle Hair Syndrome. Patient does not believe her had genetic testing to see if he is a carrier. FOB's uncle and some other relatives with bleeding disorder.Patient unsure of specifics. Patient declines aneuploidy screening and genetic carrier screening testing. TKRN Nausea/vomiting in 02/23/2020 Overview: 02/23/2020Patient is complaining of nausea in . Denies vomiting. Dietary considerations discussed . Vitamin B6 recommended. Advised patient to call/come in if she is unable to keep any food or fluids down in a 24-hour period. TKRN documented as of this encounter (statuses as of 06/02/2022) [facility]2020 History of Past illness Narrative* Problem Noted Date Resolved Date Lab test positive for detection of COVID-19 viru s 09/17/2020 10/30/2020 Overview: Tested positive for COVID on 09/14/2020 at [facility]. Mild symptoms. SW Current with histo ry of spontaneous during prior 02/23/2020 10/04/2020 Overview: 02/23/2020Patient is with history of miscarriage. Denies any bleeding or pain this .TKRN Family history of genetic disease 02/23/2020 10/30/2020 Overview: 02/23/2020 FOB's brother with Brittle Hair Syndrome. Patient does not believe her had genetic testing to see if he is a carrier. FOB's uncle and some other relatives with bleeding disorder.Patient unsure of specifics. Patient declines aneuploidy screening and genetic carrier screening testing. TKRN Nausea/vomiting in 02/23/2020 Overview: 02/23/2020Patient is complaining of nausea in . Denies vomiting. Dietary considerations discussed . Vitamin B6 recommended. Advised patient to call/come in if she is unable to keep any food or fluids down in a 24-hour period. TKRN documented as of this encounter (statuses as of 06/04/2022) [facility] History of Past illness Narrative* Problem Noted Date Resolved Date Lab test positive for detection of COVID-19 viru s 09/17/2020 10/30/2020 Overview: Tested positive for COVID on 09/14/2020 at [facility]. Mild symptoms. SW Current with histo ry of spontaneous during prior 02/23/2020 10/04/2020 Overview: 02/23/2020Patient is with history of miscarriage. Denies any bleeding or pain this .TKRN Family history of genetic disease 02/23/2020 10/30/2020 Overview: 02/23/2020 FOB's brother with Brittle Hair Syndrome. Patient does not believe her had genetic testing to see if he is a carrier. FOB's uncle and some other relatives with bleeding disorder.Patient unsure of specifics. Patient declines aneuploidy screening and genetic carrier screening testing. TKRN Nausea/vomiting in 02/23/2020 Overview: 02/23/2020Patient is complaining of nausea in . Denies vomiting. Dietary considerations discussed . Vitamin B6 recommended. Advised patient to call/come in if she is unable to keep any food or fluids down in a 24-hour period. TKRN documented as of this encounter (statuses as of 06/04/2022) [facility] History of Past illness Narrative* Problem Noted Date Resolved Date Lab test positive for detection of COVID-19 viru s 09/17/2020 10/30/2020 Overview: Tested positive for COVID on 09/14/2020 at [facility]. Mild symptoms. SW Current with histo ry of spontaneous during prior 02/23/2020 10/04/2020 Overview: 02/23/2020Patient is with history of miscarriage. Denies any bleeding or pain this .TKRN Family history of genetic disease 02/23/2020 10/30/2020 Overview: 02/23/2020 FOB's brother with Brittle Hair Syndrome. Patient does not believe her had genetic testing to see if he is a carrier. FOB's uncle and some other relatives with bleeding disorder.Patient unsure of specifics. Patient declines aneuploidy screening and genetic carrier screening testing. TKRN Nausea/vomiting in 02/23/2020 Overview: 02/23/2020Patient is complaining of nausea in . Denies vomiting. Dietary considerations discussed . Vitamin B6 recommended. Advised patient to call/come in if she is unable to keep any food or fluids down in a 24-hour period. TKRN documented as of this encounter (statuses as of 06/16/2022) [facility]2020 History of Past illness Narrative* Problem Noted Date Resolved Date Lab test positive for detection of COVID-19 viru s 09/17/2020 10/30/2020 Overview: Tested positive for COVID on 09/14/2020 at [facility]. Mild symptoms. SW Current with histo ry of spontaneous during prior 02/23/2020 10/04/2020 Overview: 02/23/2020Patient is with history of miscarriage. Denies any bleeding or pain this .TKRN Family history of genetic disease 02/23/2020 10/30/2020 Overview: 02/23/2020 FOB's brother with Brittle Hair Syndrome. Patient does not believe her had genetic testing to see if he is a carrier. FOB's uncle and some other relatives with bleeding disorder.Patient unsure of specifics. Patient declines aneuploidy screening and genetic carrier screening testing. TKRN Nausea/vomiting in 02/23/2020 Overview: 02/23/2020Patient is complaining of nausea in . Denies vomiting. Dietary considerations discussed . Vitamin B6 recommended. Advised patient to call/come in if she is unable to keep any food or fluids down in a 24-hour period. TKRN documented as of this encounter (statuses as of 07/03/2022) [facility] History of Past illness Narrative* Problem Noted Date Resolved Date Lab test positive for detection of COVID-19 viru s 09/17/2020 10/30/2020 Overview: Tested positive for COVID on 09/14/2020 at [facility]. Mild symptoms. SW Current with histo ry of spontaneous during prior 02/23/2020 10/04/2020 Overview: 02/23/2020Patient is with history of miscarriage. Denies any bleeding or pain this .TKRN Family history of genetic disease 02/23/2020 10/30/2020 Overview: 02/23/2020 FOB's brother with Brittle Hair Syndrome. Patient does not believe her had genetic testing to see if he is a carrier. FOB's uncle and some other relatives with bleeding disorder.Patient unsure of specifics. Patient declines aneuploidy screening and genetic carrier screening testing. TKRN Nausea/vomiting in 02/23/2020 Overview: 02/23/2020Patient is complaining of nausea in . Denies vomiting. Dietary considerations discussed . Vitamin B6 recommended. Advised patient to call/come in if she is unable to keep any food or fluids down in a 24-hour period. TKRN documented as of this encounter (statuses as of 07/04/2022) [facility] History of Past illness Narrative* Problem Noted Date Resolved Date Lab test positive for detection of COVID-19 viru s 09/17/2020 10/30/2020 Overview: Tested positive for COVID on 09/14/2020 at [facility]. Mild symptoms. SW Current with histo ry of spontaneous during prior 02/23/2020 10/04/2020 Overview: 02/23/2020Patient is with history of miscarriage. Denies any bleeding or pain this .TKRN Family history of genetic disease 02/23/2020 10/30/2020 Overview: 02/23/2020 FOB's brother with Brittle Hair Syndrome. Patient does not believe her had genetic testing to see if he is a carrier. FOB's uncle and some other relatives with bleeding disorder.Patient unsure of specifics. Patient declines aneuploidy screening and genetic carrier screening testing. TKRN Nausea/vomiting in 02/23/2020 Overview: 02/23/2020Patient is complaining of nausea in . Denies vomiting. Dietary considerations discussed . Vitamin B6 recommended. Advised patient to call/come in if she is unable to keep any food or fluids down in a 24-hour period. TKRN documented as of this encounter (statuses as of 07/30/2022) [facility]2020 History of Past illness Narrative* Problem Noted Date Resolved Date Lab test positive for detection of COVID-19 viru s 09/17/2020 10/30/2020 Overview: Tested positive for COVID on 09/14/2020 at [facility]. Mild symptoms. SW Current with histo ry of spontaneous during prior 02/23/2020 10/04/2020 Overview: 02/23/2020Patient is with history of miscarriage. Denies any bleeding or pain this .TKRN Family history of genetic disease 02/23/2020 10/30/2020 Overview: 02/23/2020 FOB's brother with Brittle Hair Syndrome. Patient does not believe her had genetic testing to see if he is a carrier. FOB's uncle and some other relatives with bleeding disorder.Patient unsure of specifics. Patient declines aneuploidy screening and genetic carrier screening testing. TKRN Nausea/vomiting in 02/23/2020 Overview: 02/23/2020Patient is complaining of nausea in . Denies vomiting. Dietary considerations discussed . Vitamin B6 recommended. Advised patient to call/come in if she is unable to keep any food or fluids down in a 24-hour period. TKRN documented as of this encounter (statuses as of 08/13/2022) [facility] History of Past illness Narrative* Problem Noted Date Resolved Date Lab test positive for detection of COVID-19 viru s 09/17/2020 10/30/2020 Overview: Tested positive for COVID on 09/14/2020 at [facility]. Mild symptoms. SW Current with histo ry of spontaneous during prior 02/23/2020 10/04/2020 Overview: 02/23/2020Patient is with history of miscarriage. Denies any bleeding or pain this .TKRN Family history of genetic disease 02/23/2020 10/30/2020 Overview: 02/23/2020 FOB's brother with Brittle Hair Syndrome. Patient does not believe her had genetic testing to see if he is a carrier. FOB's uncle and some other relatives with bleeding disorder.Patient unsure of specifics. Patient declines aneuploidy screening and genetic carrier screening testing. TKRN Nausea/vomiting in 02/23/2020 Overview: 02/23/2020Patient is complaining of nausea in . Denies vomiting. Dietary considerations discussed . Vitamin B6 recommended. Advised patient to call/come in if she is unable to keep any food or fluids down in a 24-hour period. TKRN documented as of this encounter (statuses as of 08/21/2022) [facility] History of Past illness Narrative* Problem Noted Date Resolved Date Lab test positive for detection of COVID-19 viru s 09/17/2020 10/30/2020 Overview: Tested positive for COVID on 09/14/2020 at [facility]. Mild symptoms. SW Current with histo ry of spontaneous during prior 02/23/2020 10/04/2020 Overview: 02/23/2020Patient is with history of miscarriage. Denies any bleeding or pain this .TKRN Family history of genetic disease 02/23/2020 10/30/2020 Overview: 02/23/2020 FOB's brother with Brittle Hair Syndrome. Patient does not believe her had genetic testing to see if he is a carrier. FOB's uncle and some other relatives with bleeding disorder.Patient unsure of specifics. Patient declines aneuploidy screening and genetic carrier screening testing. TKRN Nausea/vomiting in 02/23/2020 Overview: 02/23/2020Patient is complaining of nausea in . Denies vomiting. Dietary considerations discussed . Vitamin B6 recommended. Advised patient to call/come in if she is unable to keep any food or fluids down in a 24-hour period. TKRN documented as of this encounter (statuses as of 09/10/2022) [facility] History of Past illness Narrative* Problem Noted Date Resolved Date Lab test positive for detection of COVID-19 viru s 09/17/2020 10/30/2020 Overview: Tested positive for COVID on 09/14/2020 at [facility]. Mild symptoms. SW Current with histo ry of spontaneous during prior 02/23/2020 10/04/2020 Overview: 02/23/2020Patient is with history of miscarriage. Denies any bleeding or pain this .TKRN Family history of genetic disease 02/23/2020 10/30/2020 Overview: 02/23/2020 FOB's brother with Brittle Hair Syndrome. Patient does not believe her had genetic testing to see if he is a carrier. FOB's uncle and some other relatives with bleeding disorder.Patient unsure of specifics. Patient declines aneuploidy screening and genetic carrier screening testing. TKRN Nausea/vomiting in 02/23/2020 Overview: 02/23/2020Patient is complaining of nausea in . Denies vomiting. Dietary considerations discussed . Vitamin B6 recommended. Advised patient to call/come in if she is unable to keep any food or fluids down in a 24-hour period. TKRN documented as of this encounter (statuses as of 09/10/2022) [facility] History of Past illness Narrative* Problem Noted Date Resolved Date Lab test positive for detection of COVID-19 viru s 09/17/2020 10/30/2020 Overview: Tested positive for COVID on 09/14/2020 at [facility]. Mild symptoms. SW Current with histo ry of spontaneous during prior 02/23/2020 10/04/2020 Overview: 02/23/2020Patient is with history of miscarriage. Denies any bleeding or pain this .TKRN Family history of genetic disease 02/23/2020 10/30/2020 Overview: 02/23/2020 FOB's brother with Brittle Hair Syndrome. Patient does not believe her had genetic testing to see if he is a carrier. FOB's uncle and some other relatives with bleeding disorder.Patient unsure of specifics. Patient declines aneuploidy screening and genetic carrier screening testing. TKRN Nausea/vomiting in 02/23/2020 Overview: 02/23/2020Patient is complaining of nausea in . Denies vomiting. Dietary considerations discussed . Vitamin B6 recommended. Advised patient to call/come in if she is unable to keep any food or fluids down in a 24-hour period. TKRN documented as of this encounter (statuses as of 10/08/2022) [facility] History of Past illness Narrative* Problem Noted Date Resolved Date Lab test positive for detection of COVID-19 viru s 09/17/2020 10/30/2020 Overview: Tested positive for COVID on 09/14/2020 at [facility]. Mild symptoms. SW Current with histo ry of spontaneous during prior 02/23/2020 10/04/2020 Overview: 02/23/2020Patient is with history of miscarriage. Denies any bleeding or pain this .TKRN Family history of genetic disease 02/23/2020 10/30/2020 Overview: 02/23/2020 FORoman's brother with Brittle Hair Syndrome. Patient does not believe her had genetic testing to see if he is a carrier. FOB's uncle and some other relatives with bleeding disorder.Patient unsure of specifics. Patient declines aneuploidy screening and genetic carrier screening testing. TKRN Nausea/vomiting in 02/23/2020 Overview: 02/23/2020Patient is complaining of nausea in . Denies vomiting. Dietary considerations discussed . Vitamin B6 recommended. Advised patient to call/come in if she is unable to keep any food or fluids down in a 24-hour period. TKRN documented as of this encounter (statuses as of 10/22/2022) [facility] History of Past illness Narrative* Problem Noted Date Resolved Date Lab test positive for detection of COVID-19 viru s 09/17/2020 10/30/2020 Overview: Tested positive for COVID on 09/14/2020 at [facility]. Mild symptoms. SW Current with histo ry of spontaneous during prior 02/23/2020 10/04/2020 Overview: 02/23/2020Patient is with history of miscarriage. Denies any bleeding or pain this .TKRN Family history of genetic disease 02/23/2020 10/30/2020 Overview: 02/23/2020 FOB's brother with Brittle Hair Syndrome. Patient does not believe her had genetic testing to see if he is a carrier. FOB's uncle and some other relatives with bleeding disorder.Patient unsure of specifics. Patient declines aneuploidy screening and genetic carrier screening testing. TKRN Nausea/vomiting in 02/23/2020 Overview: 02/23/2020Patient is complaining of nausea in . Denies vomiting. Dietary considerations discussed . Vitamin B6 recommended. Advised patient to call/come in if she is unable to keep any food or fluids down in a 24-hour period. TKRN documented as of this encounter (statuses as of 11/05/2022) [facility] History of Past illness Narrative* Problem Noted Date Resolved Date Lab test positive for detection of COVID-19 viru s 09/17/2020 10/30/2020 Overview: Tested positive for COVID on 09/14/2020 at [facility]. Mild symptoms. SW Current with histo ry of spontaneous during prior 02/23/2020 10/04/2020 Overview: 02/23/2020Patient is with history of miscarriage. Denies any bleeding or pain this .TKRN Family history of genetic disease 02/23/2020 10/30/2020 Overview: 02/23/2020 FOB's brother with Brittle Hair Syndrome. Patient does not believe her had genetic testing to see if he is a carrier. FOB's uncle and some other relatives with bleeding disorder.Patient unsure of specifics. Patient declines aneuploidy screening and genetic carrier screening testing. TKRN Nausea/vomiting in 02/23/2020 Overview: 02/23/2020Patient is complaining of nausea in . Denies vomiting. Dietary considerations discussed . Vitamin B6 recommended. Advised patient to call/come in if she is unable to keep any food or fluids down in a 24-hour period. TKRN documented as of this encounter (statuses as of 11/20/2022) [facility] History of Past illness Narrative* Problem Noted Date Resolved Date Lab test positive for detection of COVID-19 viru s 09/17/2020 10/30/2020 Overview: Tested positive for COVID on 09/14/2020 at [facility]. Mild symptoms. SW Current with histo ry of spontaneous during prior 02/23/2020 10/04/2020 Overview: 02/23/2020Patient is with history of miscarriage. Denies any bleeding or pain this .TKRN Family history of genetic disease 02/23/2020 10/30/2020 Overview: 02/23/2020 FOB's brother with Brittle Hair Syndrome. Patient does not believe her had genetic testing to see if he is a carrier. FOB's uncle and some other relatives with bleeding disorder.Patient unsure of specifics. Patient declines aneuploidy screening and genetic carrier screening testing. TKRN Nausea/vomiting in 02/23/2020 Overview: 02/23/2020Patient is complaining of nausea in . Denies vomiting. Dietary considerations discussed . Vitamin B6 recommended. Advised patient to call/come in if she is unable to keep any food or fluids down in a 24-hour period. TKRN documented as of this encounter (statuses as of 12/03/2022) [facility] History of Past illness Narrative* Problem Noted Date Resolved Date Lab test positive for detection of COVID-19 viru s 09/17/2020 10/30/2020 Overview: Tested positive for COVID on 09/14/2020 at [facility]. Mild symptoms. SW Current with histo ry of spontaneous during prior 02/23/2020 10/04/2020 Overview: 02/23/2020Patient is with history of miscarriage. Denies any bleeding or pain this .TKRN Family history of genetic disease 02/23/2020 10/30/2020 Overview: 02/23/2020 FOB's brother with Brittle Hair Syndrome. Patient does not believe her had genetic testing to see if he is a carrier. FOB's uncle and some other relatives with bleeding disorder.Patient unsure of specifics. Patient declines aneuploidy screening and genetic carrier screening testing. TKRN Nausea/vomiting in 02/23/2020 Overview: 02/23/2020Patient is complaining of nausea in . Denies vomiting. Dietary considerations discussed . Vitamin B6 recommended. Advised patient to call/come in if she is unable to keep any food or fluids down in a 24-hour period. TKRN documented as of this encounter (statuses as of 12/05/2022) [facility]11-[facility]2020 History of Past illness Narrative* Problem Noted Date Resolved Date Lab test positive for detection of COVID-19 viru s 09/17/2020 10/30/2020 Overview: Tested positive for COVID on 09/14/2020 at [facility]. Mild symptoms. SW Current with histo ry of spontaneous during prior 02/23/2020 10/04/2020 Overview: 02/23/2020Patient is with history of miscarriage. Denies any bleeding or pain this .TKRN Family history of genetic disease 02/23/2020 10/30/2020 Overview: 02/23/2020 FOB's brother with Brittle Hair Syndrome. Patient does not believe her had genetic testing to see if he is a carrier. FOB's uncle and some other relatives with bleeding disorder.Patient unsure of specifics. Patient declines aneuploidy screening and genetic carrier screening testing. TKRN Nausea/vomiting in 02/23/2020 Overview: 02/23/2020Patient is complaining of nausea in . Denies vomiting. Dietary considerations discussed . Vitamin B6 recommended. Advised patient to call/come in if she is unable to keep any food or fluids down in a 24-hour period. TKRN documented as of this encounter (statuses as of 12/12/2022) [facility]11-[facility] History of Past illness Narrative* Problem Noted Date Resolved Date Lab test positive for detection of COVID-19 viru s 09/17/2020 10/30/2020 Overview: Tested positive for COVID on 09/14/2020 at [facility]. Mild symptoms. SW Current with histo ry of spontaneous during prior 02/23/2020 10/04/2020 Overview: 02/23/2020Patient is with history of miscarriage. Denies any bleeding or pain this .TKRN Family history of genetic disease 02/23/2020 10/30/2020 Overview: 02/23/2020 FOB's brother with Brittle Hair Syndrome. Patient does not believe her had genetic testing to see if he is a carrier. FOB's uncle and some other relatives with bleeding disorder.Patient unsure of specifics. Patient declines aneuploidy screening and genetic carrier screening testing. TKRN Nausea/vomiting in 02/23/2020 Overview: 02/23/2020Patient is complaining of nausea in . Denies vomiting. Dietary considerations discussed . Vitamin B6 recommended. Advised patient to call/come in if she is unable to keep any food or fluids down in a 24-hour period. TKRN documented as of this encounter (statuses as of 12/17/2022) [facility] History of Past illness Narrative* Problem Noted Date Resolved Date Lab test positive for detection of COVID-19 viru s 09/17/2020 10/30/2020 Overview: Tested positive for COVID on 09/14/2020 at [facility]. Mild symptoms. SW Current with histo ry of spontaneous during prior 02/23/2020 10/04/2020 Overview: 02/23/2020Patient is with history of miscarriage. Denies any bleeding or pain this .TKRN Family history of genetic disease 02/23/2020 10/30/2020 Overview: 02/23/2020 FORoman's brother with Brittle Hair Syndrome. Patient does not believe her had genetic testing to see if he is a carrier. FOB's uncle and some other relatives with bleeding disorder.Patient unsure of specifics. Patient declines aneuploidy screening and genetic carrier screening testing. TKRN Nausea/vomiting in 02/23/2020 Overview: 02/23/2020Patient is complaining of nausea in . Denies vomiting. Dietary considerations discussed . Vitamin B6 recommended. Advised patient to call/come in if she is unable to keep any food or fluids down in a 24-hour period. TKRN documented as of this encounter (statuses as of 12/18/2022) [facility] History of Past illness Narrative* Problem Noted Date Resolved Date Lab test positive for detection of COVID-19 viru s 09/17/2020 10/30/2020 Overview: Tested positive for COVID on 09/14/2020 at [facility]. Mild symptoms. SW Current with histo ry of spontaneous during prior 02/23/2020 10/04/2020 Overview: 02/23/2020Patient is with history of miscarriage. Denies any bleeding or pain this .TKRN Family history of genetic disease 02/23/2020 10/30/2020 Overview: 02/23/2020 FOB's brother with Brittle Hair Syndrome. Patient does not believe her had genetic testing to see if he is a carrier. FOB's uncle and some other relatives with bleeding disorder.Patient unsure of specifics. Patient declines aneuploidy screening and genetic carrier screening testing. TKRN Nausea/vomiting in 02/23/2020 Overview: 02/23/2020Patient is complaining of nausea in . Denies vomiting. Dietary considerations discussed . Vitamin B6 recommended. Advised patient to call/come in if she is unable to keep any food or fluids down in a 24-hour period. TKRN documented as of this encounter (statuses as of 12/24/2022) [facility] History of Past illness Narrative* Problem Noted Date Resolved Date Lab test positive for detection of COVID-19 viru s 09/17/2020 10/30/2020 Overview: Tested positive for COVID on 09/14/2020 at [facility]. Mild symptoms. SW Current with histo ry of spontaneous during prior 02/23/2020 10/04/2020 Overview: 02/23/2020Patient is with history of miscarriage. Denies any bleeding or pain this .TKRN Family history of genetic disease 02/23/2020 10/30/2020 Overview: 02/23/2020 FOB's brother with Brittle Hair Syndrome. Patient does not believe her had genetic testing to see if he is a carrier. FOB's uncle and some other relatives with bleeding disorder.Patient unsure of specifics. Patient declines aneuploidy screening and genetic carrier screening testing. TKRN Nausea/vomiting in 02/23/2020 Overview: 02/23/2020Patient is complaining of nausea in . Denies vomiting. Dietary considerations discussed . Vitamin B6 recommended. Advised patient to call/come in if she is unable to keep any food or fluids down in a 24-hour period. TKRN documented as of this encounter (statuses as of 12/31/2022) [facility] History of Past illness Narrative* Problem Noted Date Resolved Date Lab test positive for detection of COVID-19 viru s 09/17/2020 10/30/2020 Overview: Tested positive for COVID on 09/14/2020 at [facility]. Mild symptoms. SW Current with histo ry of spontaneous during prior 02/23/2020 10/04/2020 Overview: 02/23/2020Patient is with history of miscarriage. Denies any bleeding or pain this .TKRN Family history of genetic disease 02/23/2020 10/30/2020 Overview: 02/23/2020 FORoman's brother with Brittle Hair Syndrome. Patient does not believe her had genetic testing to see if he is a carrier. FOB's uncle and some other relatives with bleeding disorder.Patient unsure of specifics. Patient declines aneuploidy screening and genetic carrier screening testing. TKRN Nausea/vomiting in 02/23/2020 Overview: 02/23/2020Patient is complaining of nausea in . Denies vomiting. Dietary considerations discussed . Vitamin B6 recommended. Advised patient to call/come in if she is unable to keep any food or fluids down in a 24-hour period. TKRN documented as of this encounter (statuses as of 01/12/2023) [facility] History of Past illness Narrative* Problem Noted Date Resolved Date Lab test positive for detection of COVID-19 viru s 09/17/2020 10/30/2020 Overview: Tested positive for COVID on 09/14/2020 at [facility]. Mild symptoms. SW Current with histo ry of spontaneous during prior 02/23/2020 10/04/2020 Overview: 02/23/2020Patient is with history of miscarriage. Denies any bleeding or pain this .TKRN Family history of genetic disease 02/23/2020 10/30/2020 Overview: 02/23/2020 FOB's brother with Brittle Hair Syndrome. Patient does not believe her had genetic testing to see if he is a carrier. FOB's uncle and some other relatives with bleeding disorder.Patient unsure of specifics. Patient declines aneuploidy screening and genetic carrier screening testing. TKRN Nausea/vomiting in 02/23/2020 Overview: 02/23/2020Patient is complaining of nausea in . Denies vomiting. Dietary considerations discussed . Vitamin B6 recommended. Advised patient to call/come in if she is unable to keep any food or fluids down in a 24-hour period. TKRN documented as of this encounter (statuses as of 01/23/2023) [facility] History of Past illness Narrative* Problem Noted Date Resolved Date Lab test positive for detection of COVID-19 viru s 09/17/2020 10/30/2020 Overview: Tested positive for COVID on 09/14/2020 at [facility]. Mild symptoms. SW Current with histo ry of spontaneous during prior 02/23/2020 10/04/2020 Overview: 02/23/2020Patient is with history of miscarriage. Denies any bleeding or pain this .TKRN Family history of genetic disease 02/23/2020 10/30/2020 Overview: 02/23/2020 FOB's brother with Brittle Hair Syndrome. Patient does not believe her had genetic testing to see if he is a carrier. FOB's uncle and some other relatives with bleeding disorder.Patient unsure of specifics. Patient declines aneuploidy screening and genetic carrier screening testing. TKRN Nausea/vomiting in 02/23/2020 Overview: 02/23/2020Patient is complaining of nausea in . Denies vomiting. Dietary considerations discussed . Vitamin B6 recommended. Advised patient to call/come in if she is unable to keep any food or fluids down in a 24-hour period. TKRN documented as of this encounter (statuses as of 01/29/2023) [facility] note* Diagnosis History of recurrent miscarriages- [facility] Diagnosis History of recurrent miscarriages Early stage of state, incidental [facility] Diagnosis with history of section, antepartum- Primary Previous recurrent miscarriages affecting , antepartum [facility] Diagnosis Encounter for supervision of other normal in first trimester- Primary with history of section, antepartum Nausea and vomiting during [facility] Diagnosis 12 weeks gestation of - Primary state, incidental Encounter for supervision of other normal in first trimester with history of section, antepartum Encounter for screening of mother Unspecified screening [facility] Diagnosis 16 weeks gestation of - Primary state, incidental Encounter for supervision of other normal in second trimester [facility] Diagnosis Encounter for anatomic survey- Primary 18 weeks gestation of state, incidental [facility] Diagnosis 18 weeks gestation of - Primary state, incidental Encounter for supervision of other normal in second trimester Encounter for follow-up ultrasound of anatomy [facility] Diagnosis with history of section, antepartum- Primary 22 weeks gestation of state, incidental [facility] Diagnosis Encounter for follow-up ultrasound of anatomy- Primary 22 weeks gestation of state, incidental [facility] Diagnosis with history of section, antepartum- Primary 26 weeks gestation of state, incidental Need for vaccination Need for prophylactic vaccination and inoculation against unspecified single disease Need for influenza vaccination Need for prophylactic vaccination and inoculation against influenza [facility] Diagnosis with history of section, antepartum- Primary Rubella non-immune status, antepartum Other specified complication, antepartum 28 weeks gestation of state, incidental Need for vaccination Need for prophylactic vaccination and inoculation against unspecified single disease [facility] Diagnosis 30 weeks gestation of - Primary state, incidental with history of section, antepartum [facility] Diagnosis with history of section, antepartum- Primary Rubella non-immune status, antepartum Other specified complication, antepartum 32 weeks gestation of state, incidental [facility] Diagnosis with history of section, antepartum- Primary Rubella non-immune status, antepartum Other specified complication, antepartum 34 weeks gestation of state, incidental [facility] Diagnosis with history of section, antepartum- Primary Vaginal irritation Unspecified noninflammatory disorder of vagina 36 weeks gestation of state, incidental [facility] Diagnosis 37 weeks gestation of - Primary state, incidental [facility] Diagnosis with history of section, antepartum- Primary 38 weeks gestation of state, incidental Rubella non-immune status, antepartum Other specified complication, antepartum [facility] Diagnosis care and examination immediately after delivery- Primary documented in this encounter [facility] note* Diagnosis care and examination- Primary Routine follow-up Encounter for screening for malignant neoplasm of cervix Screening for malignant neoplasm of the cervix Special screening examination for human papillomavirus (HPV) documented in this encounter [facility] for referral (narrative)* Diagnostic Procedure Only (Routine) - Authorized Specialty Diagnoses / Procedures Referred By Narda lugo Referred To Contact [facility] Diagnoses Encounter for supervision of other normal in first trimester Procedures NUCHAL TRANSLUCENCY WHI US NUCHAL TRANSLUCENCY 1ST GESTATION Kristine Cameron MD [address] [place] [address] [address] Referral ID Status Reason Start Date Expiration Date Visits Requested Visits Authorized [id number] Authorized Auto-Generat ed Referral 06/04/2022 06/04/2023 1 1 * Diagnostic Procedure Only (Routine) - Authorized Specialty Diagnoses / Procedures Referred By Contac t Referred To Contact [facility] Diagnoses Encounter for supervision of other normal in first trimester Procedures OBSTETRIC ULTRASOUND WHI US PREG UTERUS AFTER 1ST TRIMEST GESTATION Kristine Cameron MD [address] [place] [address] [id number] [place] [address] Referral ID Status Reason Start Date Expiration Date Visits Requested Visits Authorized [id number] Authorized Auto-Generat ed Referral 06/04/2022 06/04/2023 1 1 [facility] Diagnostic Procedure Only (Routine) - Authorized Specialty Diagnoses / Procedures Referred By Contac t Referred To Contact [facility] Diagnoses 18 weeks gestation of Encounter for supervision of other normal in second trimester Encounter for follow-up ultrasound of anatomy Procedures OBSTETRIC ULTRASOUND WHI US PREG UTERUS AFTER 1ST TRIMEST GESTATION Kristine Cameron MD [address] [place] [address] [facility] [place] [address] Referral ID Status Reason Start Date Expiration Date Visits Requested Visits Authorized [id number] Authorized Auto-Generat ed Referral 08/13/2022 08/13/2023 1 1 [facility] Summary Purpose Family History No Family History Records FoundNo Family History Records FoundNo Family History Records FoundNo Family History Records FoundNo Family History Records Found Advance Directives No Advanced Directives Records FoundNo Advanced Directives Records FoundNo Advanced Directives Records FoundNo Advanced Directives Records FoundNo Advanced Directives Records Found Health Concerns Problem Noted Date OB Reminders 06/04/2022 Problem Noted Date OB Reminders 06/04/2022 Problem Noted Date OB Reminders 06/04/2022 Problem Noted Date OB Reminders 06/04/2022 Problem Noted Date OB Reminders 06/04/2022 Problem Noted Date OB Reminders 06/04/2022 Problem Noted Date OB Reminders 06/04/2022 Problem Noted Date OB Reminders 06/04/2022 Problem Noted Date OB Reminders 06/04/2022 Problem Noted Date OB Reminders 06/04/2022 Problem Noted Date OB Reminders 06/04/2022 Problem Noted Date OB Reminders 06/04/2022 Problem Noted Date OB Reminders 06/04/2022 Problem Noted Date OB Reminders 06/04/2022 Problem Noted Date OB Reminders 06/04/2022 Problem Noted Date OB Reminders 06/04/2022 Problem Noted Date OB Reminders 06/04/2022 Additional Source Comments INFORMATION SOURCE (unrecogn ized section and content) DATE CREATED AUTHOR AUTHOR'S ORGANIZ ATION 09/16/2020 [facility] DATE CREATED AUTHOR AUTHOR'S ORGANIZ ATION 12/14/2022 [facility] DATE CREATED AUTHOR AUTHOR'S ORGANIZ ATION 03/03/2023 [facility] DATE CREATED AUTHOR AUTHOR'S ORGANIZ ATION 10/11/2023 [facility] Source Comments (unrecognize d section and content) In the event this informatio n is protected by the Federal Confidentiality of Alcohol and Drug Abuse Patient Records regulations: The Federal rules restrict any use of the information to criminally investigate or prosecute any alcohol or drug abuse patient.[facility] the event this information is protected by the Federal Confidentiality of Alcohol and Drug Abuse Patient Records regulations: The Federal rules restrict any use of the information to criminally investigate or prosecute any alcohol or drug abuse patient.[facility] the event this information is protected by the Federal Confidentiality of Alcohol and Drug Abuse Patient Records regulations: The Federal rules restrict any use of the information to criminally investigate or prosecute any alcohol or drug abuse patient.[facility] the event this information is protected by the Federal Confidentiality of Alcohol and Drug Abuse Patient Records regulations: The Federal rules restrict any use of the information to criminally investigate or prosecute any alcohol or drug abuse patient.[facility] the event this information is protected by the Federal Confidentiality of Alcohol and Drug Abuse Patient Records regulations: The Federal rules restrict any use of the information to criminally investigate or prosecute any alcohol or drug abuse patient.[facility] the event this information is protected by the Federal Confidentiality of Alcohol and Drug Abuse Patient Records regulations: The Federal rules restrict any use of the information to criminally investigate or prosecute any alcohol or drug abuse patient.[facility] the event this information is protected by the Federal Confidentiality of Alcohol and Drug Abuse Patient Records regulations: The Federal rules restrict any use of the information to criminally investigate or prosecute any alcohol or drug abuse patient.[facility] the event this information is protected by the Federal Confidentiality of Alcohol and Drug Abuse Patient Records regulations: The Federal rules restrict any use of the information to criminally investigate or prosecute any alcohol or drug abuse patient.[facility] the event this information is protected by the Federal Confidentiality of Alcohol and Drug Abuse Patient Records regulations: The Federal rules restrict any use of the information to criminally investigate or prosecute any alcohol or drug abuse patient.[facility] the event this information is protected by the Federal Confidentiality of Alcohol and Drug Abuse Patient Records regulations: The Federal rules restrict any use of the information to criminally investigate or prosecute any alcohol or drug abuse patient.[facility] the event this information is protected by the Federal Confidentiality of Alcohol and Drug Abuse Patient Records regulations: The Federal rules restrict any use of the information to criminally investigate or prosecute any alcohol or drug abuse patient.[facility] the event this information is protected by the Federal Confidentiality of Alcohol and Drug Abuse Patient Records regulations: The Federal rules restrict any use of the information to criminally investigate or prosecute any alcohol or drug abuse patient.[facility] the event this information is protected by the Federal Confidentiality of Alcohol and Drug Abuse Patient Records regulations: The Federal rules restrict any use of the information to criminally investigate or prosecute any alcohol or drug abuse patient.[facility] the event this information is protected by the Federal Confidentiality of Alcohol and Drug Abuse Patient Records regulations: The Federal rules restrict any use of the information to criminally investigate or prosecute any alcohol or drug abuse patient.[facility] the event this information is protected by the Federal Confidentiality of Alcohol and Drug Abuse Patient Records regulations: The Federal rules restrict any use of the information to criminally investigate or prosecute any alcohol or drug abuse patient.[facility] the event this information is protected by the Federal Confidentiality of Alcohol and Drug Abuse Patient Records regulations: The Federal rules restrict any use of the information to criminally investigate or prosecute any alcohol or drug abuse patient.[facility] the event this information is protected by the Federal Confidentiality of Alcohol and Drug Abuse Patient Records regulations: The Federal rules restrict any use of the information to criminally investigate or prosecute any alcohol or drug abuse patient.[facility] the event this information is protected by the Federal Confidentiality of Alcohol and Drug Abuse Patient Records regulations: The Federal rules restrict any use of the information to criminally investigate or prosecute any alcohol or drug abuse patient.[facility] the event this information is protected by the Federal Confidentiality of Alcohol and Drug Abuse Patient Records regulations: The Federal rules restrict any use of the information to criminally investigate or prosecute any alcohol or drug abuse patient.[facility] the event this information is protected by the Federal Confidentiality of Alcohol and Drug Abuse Patient Records regulations: The Federal rules restrict any use of the information to criminally investigate or prosecute any alcohol or drug abuse patient.[facility] the event this information is protected by the Federal Confidentiality of Alcohol and Drug Abuse Patient Records regulations: The Federal rules restrict any use of the information to criminally investigate or prosecute any alcohol or drug abuse patient.[facility] the event this information is protected by the Federal Confidentiality of Alcohol and Drug Abuse Patient Records regulations: The Federal rules restrict any use of the information to criminally investigate or prosecute any alcohol or drug abuse patient.[facility] the event this information is protected by the Federal Confidentiality of Alcohol and Drug Abuse Patient Records regulations: The Federal rules restrict any use of the information to criminally investigate or prosecute any alcohol or drug abuse patient.[facility]In the event this information is protected by the Federal Confidentiality of Alcohol and Drug Abuse Patient Records regulations: The Federal rules restrict any use of the information to criminally investigate or prosecute any alcohol or drug abuse patient.[facility] the event this information is protected by the Federal Confidentiality of Alcohol and Drug Abuse Patient Records regulations: The Federal rules restrict any use of the information to criminally investigate or prosecute any alcohol or drug abuse patient.[facility] the event this information is protected by the Federal Confidentiality of Alcohol and Drug Abuse Patient Records regulations: The Federal rules restrict any use of the information to criminally investigate or prosecute any alcohol or drug abuse patient.[facility]In the event this information is protected by the Federal Confidentiality of Alcohol and Drug Abuse Patient Records regulations: The Federal rules restrict any use of the information to criminally investigate or prosecute any alcohol or drug abuse patient.[facility] the event this information is protected by the Federal Confidentiality of Alcohol and Drug Abuse Patient Records regulations: The Federal rules restrict any use of the information to criminally investigate or prosecute any alcohol or drug abuse patient.[facility] the event this information is protected by the Federal Confidentiality of Alcohol and Drug Abuse Patient Records regulations: The Federal rules restrict any use of the information to criminally investigate or prosecute any alcohol or drug abuse patient.[facility]In the event this information is protected by the Federal Confidentiality of Alcohol and Drug Abuse Patient Records regulations: The Federal rules restrict any use of the information to criminally investigate or prosecute any alcohol or drug abuse patient.[facility]In the event this information is protected by the Federal Confidentiality of Alcohol and Drug Abuse Patient Records regulations: The Federal rules restrict any use of the information to criminally investigate or prosecute any alcohol or drug abuse patient.[facility]In the event this information is protected by the Federal Confidentiality of Alcohol and Drug Abuse Patient Records regulations: The Federal rules restrict any use of the information to criminally investigate or prosecute any alcohol or drug abuse patient.[facility] Reason for Visit (unrecogniz ed section and content) Specialty Diagnoses / Procedures Referred By Narda t Referred To Contact [facility] Diagnoses Maternal care for unspecified type scar from previous delivery SIS Procedures OFFICE/OUTPATIENT ESTABLISHED MOD MDM 30-39 MIN CATH & SALINE/CONTRAST SONOHYSTER/HYSTEROSALPI EST WHI PATIENT Self Kristine Cameron MD [address] [place] [address] Referral ID Status Reason Start Date Expiration Date V isits Requested Visits Authorized [id number] Closed Financial Clearance Required - Self Pay Patient Cleared - INN Insurance Found 03/18/2022 11/15/2022 1 1 Reason Comments Insurance Authorization Reason Comments Refill Request Reason Comments Care Reason Comments Care Reason Comments acid reflex Reason Onset Date Comments Care 07/02/2022 Reason Onset Date Comments Care 07/30/2022 Reason Comments US Specialty Diagnoses / Procedures Referred By Contac t Referred To Contact [facility] Diagnoses Encounter for supervision of other normal in first trimester Procedures OBSTETRIC ULTRASOUND WHI US PREG UTERUS AFTER 1ST TRIMEST GESTATION Kristine Cameron MD [address] [place] [address] [address] Referral ID Status Reason Start Date Expiration Date V isits Requested Visits Authorized [id number] Closed Auto-Generate d Referral 06/04/2022 06/04/2023 1 1 Reason Onset Date Comments Care 08/13/2022 Specialty Diagnoses / Procedures Referred By Contac t Referred To Contact [facility] Diagnoses Encounter for supervision of other normal in first trimester Procedures OBSTETRIC ULTRASOUND WHI US PREG UTERUS AFTER 1ST TRIMEST GESTATION Kristine Cameron MD [address] [place] [address] [address] Reason Onset Date Comments Care 09/10/2022 Specialty Diagnoses / Procedures Referred By Contac t Referred To Contact [facility] Diagnoses 18 weeks gestation of Encounter for supervision of other normal in second trimester Encounter for follow-up ultrasound of anatomy Procedures OBSTETRIC ULTRASOUND WHI US PREG UTERUS AFTER 1ST TRIMEST GESTATION Kristine Cameron MD [address] [place] [address] [address] Referral ID Status Reason Start Date Expiration Date V isits Requested Visits Authorized [id number] Closed Auto-Generate d Referral 08/13/2022 08/13/2023 1 1 Reason Onset Date Comments Care 10/08/2022 Immunizations 10/08/2022 Flu vaccination Reason Onset Date Comments Care 10/22/2022 Reason Onset Date Comments Care 11/05/2022 Reason Onset Date Comments Care 11/19/2022 Reason Onset Date Comments Care 12/03/2022 Reason Comments Question (OB Question) Reason Onset Date Comments Care 12/17/2022 Reason Onset Date Comments Care 12/24/2022 Reason Onset Date Comments Care 12/31/2022 Reason Comments Patient Update Reason Comments Routine FOR RECORDS PERTAINING TO PATIENTS WHO ARE OR HAVE BEEN ENROLLED IN A CHEMICAL DEPENDENCY/SUBSTANCEABUSE PROGRAM, SOME INFORMATION MAY BE OMITTED. This clinical summary was aggregated from multiple sources. Caution should be exercised in using it in the provision of clinical care. This summary normalizes information from multiple sources, and as a consequence, information in this document may materially change the coding, format and clinical context of patient data. In addition, data may be omitted in some cases. CLINICAL DECISIONS SHOULD BE BASED ON THE PRIMARY CLINICAL RECORDS. [facility]. provides no warranty or guarantee of the accuracy or completeness of information in this document.
[2024-01-29 21:07] LABS: Dilute Russell Viper Venom 46.2 sec (0.0-47.0); Hexagonal Phase Phospholipid 2 8 sec (0-11); Interpretation Comment: (.); PTT-LA 43.7 sec (0.0-43.5); PTT-LA Mix 40.7 sec (0.0-40.5); Thrombin Time 20.8 sec (0.0-23.0); dPT Confirm Ratio 1.01 Ratio (0.00-1.34)
== END | disposition home or self-care (01) ==
LOC: MTLAB 14:16
PROVIDERS: Referring Provider Internal Medicine Rheumatology; Visit Provider Internal Medicine Rheumatology
DX: R76.8 Other specified abnormal immunological findings in serum (principal); M06.4 Inflammatory polyarthropathy; N96 Recurrent pregnancy loss
CPT/HCPCS: 36415; 80053; 81002; 82570; 84156; 85025; 86706; 86803; 87340

== ENCOUNTER 2025-03-22 10:00 | Inpatient (IN) | payer OTHER, SELFPAY ==
--- NOTE | 2025-03-20 12:30 | PCM.HP.BLA ---
History and Physical Date of Admission: 03/22/25 Expand All Collapse All Pre-Op History and Physical HPI: The patient is a 34 year old female presenting for pre-operative visit. She is scheduled for and bilateral salpingectomy, for repeat cs and desires sterilization on 03/22/25. Procedure discussed along with risks, benefits and complications. Other alternatives discussed for management. Consent form signed? Yes. PAST MEDICAL HISTORY PAST MEDICAL HISTORY Diagnosis Date ? Anemia ? COVID-19 2019 ? Miscarriage x3 ? Positive ARIELLE (antinuclear antibody) PAST SURGICAL HISTORY PAST SURGICAL HISTORY Procedure Laterality Date ? DELIVERY ONLY 09/27/2020 ? SECTION HX 01/14/2023 ? EXTRACTION, ERUPTED TOOTH OR EXPOSED ROOT (ELEVATION AND/OR FORCEPS REMOVAL) 2014 CURRENT MEDICATIONS Current Outpatient Medications Medication Sig Dispense Refill ? ferrous sulfate (IRON, FERROUS SULFATE,) 325 mg (65 mg iron) tablet Take 325 mg by mouth every other day. ? ondansetron (ZOFRAN) 4 mg tablet Take 1 tablet by mouth every 8 hours as needed for nausea/vomiting. 90 tablet 2 ? famotidine (PEPCID) 20 mg tablet Take 20 mg by mouth once daily. ? aspirin 81 mg cap Take 1 tablet by mouth once daily. ? Wmavlzyg-Me-Jpq-Fe-FA ( VITAMIN) tab Take 1 tablet by mouth. No current facility-administered medications for this visit. ALLERGIES: Aviane [Levonorgestrel-Ethinyl Estrad] and Zpak [Azithromycin] PERSONAL HISTORY: SOCIAL HISTORY Social History Tobacco Use ? Smoking status: Never ? Smokeless tobacco: Never Vaping Use ? Vaping status: Never Used Substance Use Topics ? Alcohol use: Not Currently Alcohol/week: 2.0 standard drinks of alcohol Types: 2 Glasses of Wine (5oz) per week Comment: seldom ? Drug use: Never FAMILY HISTORY: FAMILY HISTORY FAMILY HISTORY Problem Relation Age of Onset ? GI Mother ? Lipids Father ? other (low testerone) Brother ? Diabetes Maternal Grandmother ? Heart Attack Maternal Grandfather ? Alzheimer's Disease Paternal Grandmother ? No Known Problems Paternal Grandfather REVIEW OF SYMPTOMS: negative except as noted above PHYSICAL EXAMINATION: VITALS: Blood pressure 96/58, weight 65.8 kg (145 lb), last menstrual period 06/22/2024. GENERAL: The patient is well nourished, well hydrated in no acute distress. , The patient is oriented to time, place, and person. NECK: full range of motion Abdomen: gravid, non tender IMPRESSION: 34yo @ 37 weeks PLAN: repeat cs and bilateral salpingectomy at 39 weeks Pt has been counseled on risks/benefits and alternatives of surgery including but not limited to anesthesia, bleeding, infection, injury to pelvic structures including bowel, bladder, ureters and vessels. Pt wishes to proceed with surgery at this time. Risk of regret reviewed Pre op instructions reviewed I have reviewed and updated past medical and surgical history, medications and allergies Shantel Lewis MD Routine Office Visit on 03/08/2025 Note shared with patient
[2025-03-22] VITALS (16 sets, daily range): BP systolic 88–114; BP diastolic 52–80; PULSE 49–81; RESP 12–16; TEMP 36.1–36.6; O2SAT 98–100; BMI 25.4
[2025-03-22] MEDS: Lactated Ringers 1,000 ML 999 ML IV (10:00)
[2025-03-22 10:26] LABS: Absolute Neutrophil Count 6.1 X10^3/uL (2.0-7.7); Basophil# 0.01 X10^3/uL; Basophil% 0.1 % (0-1); Eosinophil# 0.04 X10^3/uL; Eosinophils% 0.5 % (0-5); Hematocrit 35.4 % (37-47); Hemoglobin 11.9 g/dL (12.0-15.0); Lymphocyte % 21.9 % (19-41); Mean Corp Hgb Conc 33.6 g/dL (32-36); Mean Corpuscular Hgb 29.5 pg (27.0-32.0); Mean Corpuscular Volume 87.6 fL (81-99); Mean Platelet Vol. 9.6 fl (6.2-12.0); Monocyte# 0.47 X10^3/uL; Monocyte% 5.4 % (0-10); NRBC Flagged by Analyzer 0 % (0-5); Neutrophil # 6.14 X10^3/uL (2.7-7.7); Neutrophil % 70.7 % (47-70); Platelet Count 162 K/mm3 (150-450); RBC Distribution Width CV 14.3 % (11.6-14.6); RBC Distribution Width SD 46.1 fl (35.1-43.9); Red Blood Count 4.04 M/mm3 (4.2-5.4); White Blood Count 8.7 K/mm3 (4.4-11.0)
[2025-03-22] MEDS: Acetaminophen 500 MG Tablet 1000 MG PO ×3 (10:56→23:23)
[2025-03-22] MEDS: Lactated Ringers 1,000 ML 150 ML IV (10:57)
[2025-03-22] MEDS: Sodium Citrate/Citric Acid 30 ML UDC PO (11:50)
[2025-03-22] MEDS: Cefazolin 2 GM in 0.9% Normal Saline (100mL Bag) 100 ML IV (12:06)
--- NOTE | 2025-03-22 12:15 | FALS_PTH ---
PATIENT: ALBERT TAVERA LOC: WP U#:[id number] AGE/SX: 34/F ROOM: WP004 RE03/22/[address]: Dr. Shantel Stauffer, MDDOB: 1990 BED: 1 DIS: 03/24/2025 SPEC #: [id number] RECD: 03/22/25 14:01 STATUS: LISA PATTI #: [id number] PARMJIT: 03/22/25 12:[address]: Shantel Stauffer DEPT: SURGICAL PATHOLOGY RECD BY: Felix York ENTERED: 03/22/25 15:35 SP TYPE: FALL TUBES OTHR DR: EUGENE Michael Tissues: A - Fallopian tube Procedures: Surgery Specimen Level II HEADER OPERATION: Tubal ligation PRE-OP DIAGNOSIS: Sterilization TISSUE SUBMITTED: A- Bilateral fallopian tubes MICROSCOPIC DIAGNOSIS A. Bilateral fallopian tubes, bilateral salpingectomy: * Benign fallopian tubes with complete cross sections obtained * Benign paratubal cysts MICROSCOPIC DESCRIPTION Slides are reviewed. GROSS DESCRIPTION A. Received fresh in a container labeled with the patient's name, date of , and bilateral fallopian tubes R suture are 2 fimbriated fallopian tube segments, the right received with a stitch. The right is 5.0 cm in length by 0.7 cm in diameter with a 1.5 cm in length by 0.2 cm in diameter pedunculated 0.5 cm paratubal cyst. The left fallopian tube is 5.5 cm in length by 0.8 cm in diameter. Each display noble-pink, smooth, and glistening serosa with unremarkable fimbriated ends. Sectioning of each reveals a pinpoint lumen. Water Supervisor sections:A1. Right fallopian tube with paratubal cystA2. Left fallopian tube [facility] 03-22-2025 CPT:78293n5
[2025-03-22 12:32] LABS: Syphilis Antibodies Nonreactive (Nonreactive)
[2025-03-22] MEDS: Oxytocin 15 Units/NS 250ml 15 UNITS/250 ML IV.SOLN 83 UNITS IV (13:00)
--- NOTE | 2025-03-22 13:04 | OP.PCM_ITS ---
Maternal Data Information Gestational age: 39 weeks Operative Report (OB) Details Procedure Type: low transverse (and bilateral salpingectomy ) Date of Procedure: 03/22/25 Procedure Start Time: 12:15 Procedure Stop Time: 12:53 Time of Delivery: 12:20 Pre-Operative Diagnosis: Repeat Elective and Desires elective sterilization Post-Operative Diagnosis: Same as Pre-operative diagnosis Classification: Scheduled Type of Anesthesia: Spinal Special Medications: hemoblast Antibiotic Given: Ancef 2 grams IV x1 Drain: Carrero to straight drain Estimated Blood Loss: 600 Fluids Replaced: 600 Findings Description of surgery: After informed consent was obtained the patient was taken the operating room she was given spinal anesthesia. She was then placed in the supine position. She was prepped and draped in the normal sterile fashion. Anesthesia was found to be adequate. At this time a Pfannenstiel skin incision was made with a knife was carried down to the underlying layer of the fascia. The fascial incision was then extended laterally using low scissor. Attention was then turned to the superior aspect of the fascial edge was grasped with 2 straight Ros clamps tented up and the rectus muscle dissected off sharply. Rectus muscles were then in the midline sharply and peritoneum was entered bluntly. Gentle opposing traction was placed. Adhesions noted - at this time bladder flap was created using metzenbaum scissor. Once taken down appropriately- Scalpel was used to make a uterine incision in a low transverse fashion. The uterus was then entered bluntly gentle opposing traction was placed to extend this incision. Membranes were ruptured clear. 's head was brought to the uterine incision was delivered atraumatically. Infant was vigorous at delivery and delayed cord clamping performed. Cord was clamped and cut was handed to the waiting nursery team. The Placenta was removed from the uterus. The uterus was then removed from the abdominal cavity. The uterus was cleared of all clots and debris using a lap. At this time the uterine incision was reapproximated using #1 Vicryl in a running locked fashion. Followed by a second for hemostasis- in an interrupted figure of eight fashion. Hemostasis was appreciated. Posterior cul-de-sac was then cleared of all clots and debris. At this time bilateral tubes were traced back to the fimbriated ends grasped with Kal. The LigaSure device was used to coagulate and ligate along the mesosalpinx. Excellent hemostasis was appreciated. Uterus was placed back in the abdominal cavity. Gutters were cleared of all clots and debris. Uterine incision was reevaluated and noted to be of excellent hemostasis. Due to the serosal adhesions and the bladder peritoneal adhesions there was some surface oozing. Cautery was used and then Hemablast was placed over the anterior aspect of the uterus as well as the uterine incision. At this time the peritoneum was grasped with Kellys reapproximated using #2 Vicryl suture in a running fashion. Fascia was then reapproximated using #1 Vicryl in a running fashion. Subcu layer was irrigated with NS, reapproximated with #2 0 plain gut suture in an interrupted fashion. Subcu layer was closed using 4-0 Viryl in a subcu fashion. Dry sterile dressing was applied. Instrument lap needle count correct ?2. Anticipated normal postoperative course. Surgical findings: normal tubes and ovaries bilaterally Presentation: Vertex Amniotic Membrane Rupture Type: Artificial Amniotic Fluid Description: Clear Placental Delivery Description: Expressed Placenta Disposition: [facility] Specimen collected: Yes Description of specimen(s) removed: bilateral fallopian tubes Cord Vessel Description: 3 Vessels Cord Entanglement: None Infant A gender: Female (1 minute): 8 (5 minute): 9 Delayed Cord Clamping: Yes Director Of Financial Reporting director of income tax: Yes Beauty Therapist: Chayito Castro Tasks completed by preschool assistant: Opening & closing, Dissecting tissue and Retracting Additional butcher's assistant?: Yes Additional Electrical Instrument Repairer #2: danika giordano [email or web address] Tasks completed by butcher's assistant #2: Closing and Retracting Complications Complications: No
[2025-03-22] MEDS: Ketorolac 30 MG/ML Syringe IV ×2 (13:55→20:17)
[2025-03-22] MEDS: Lactated Ringers 1,000 ML 100 ML IV (17:09)
[2025-03-22] MEDS: 0.9% Saline Lock 10 ML Syringe IV (23:23)
[2025-03-23] VITALS: BP 90/55; PULSE 65; RESP 17; TEMP 36.6; O2SAT 97
[2025-03-23] MEDS: Ketorolac 30 MG/ML Syringe IV ×2 (01:48→08:09)
[2025-03-23 03:45] VITALS: BP 94/60; PULSE 63; RESP 17; TEMP 36.7; O2SAT 98
[2025-03-23] MEDS: Acetaminophen 500 MG Tablet 1000 MG PO ×4 (05:02→23:32)
[2025-03-23 07:05] LABS: Hematocrit 31.1 % (37-47); Hemoglobin 10.7 g/dL (12.0-15.0); Mean Corp Hgb Conc 34.4 g/dL (32-36); Mean Corpuscular Hgb 30.3 pg (27.0-32.0); Mean Corpuscular Volume 88.1 fL (81-99); Mean Platelet Vol. 9.8 fl (6.2-12.0); Platelet Count 130 K/mm3 (150-450); RBC Distribution Width CV 14.5 % (11.6-14.6); RBC Distribution Width SD 46.4 fl (35.1-43.9); Red Blood Count 3.53 M/mm3 (4.2-5.4); White Blood Count 11.5 K/mm3 (4.4-11.0)
[2025-03-23 08:00] VITALS: BP 93/62; PULSE 76; RESP 16; TEMP 36.8; O2SAT 98
[2025-03-23] MEDS: 0.9% Saline Lock 10 ML Syringe IV (08:09)
[2025-03-23] MEDS: Senna/Docusate Sodium 1 Tablet PO (08:10)
--- NOTE | 2025-03-23 09:27 | PCM.PROGNOTE ---
Subjective Subjective patient seen at bedside, doing well. Patient reports good pain control. lochia mild. passing flatus and voiding w/o difficulty. bottle feeding Objective Data Objective Data Vital Signs: Vital Signs Temp Pulse Resp BP Pulse Ox O2 Del Method 98.1 F 63 17 94/60 98 Room Air 03/23/25 03:45 03/23/25 03:45 03/23/25 03:45 03/23/25 03:45 03/23/25 03:45 03/23/25 03:45 Oxygen Delivery Method Room Air Weight: 67.132 kg Body Mass Index (BMI) 25.4 Intake & Output: Intake and Output for Last 24 Hours 03/21/25 03/22/25 03/23/25 23:59 23:59 23:59 Intake Total 2975.75 / 2975.75 1000 / 1000 Output Total 2400 / 2400 300 / 300 Balance 575.75 / 575.75 700 / 700 Lab / Micro Data 03/23/25 06:40 Labs: Laboratory Results - last 24 hr 03/22/25 10:00: WBC 8.7, RBC 4.04 L, Hgb 11.9 L, Hct 35.4 L, MCV 87.6, MCH 29.5, MCHC 33.6, RDW Std Deviation 46.1 H, RDW Coeff of Romy 14.3, Plt Count 162, MPV 9.6, Immature Gran % (Auto) 1.400 H, Neut % (Auto) 70.7 H, Lymph % (Auto) 21.9, Bamberg % (Auto) 5.4, Eos % (Auto) 0.5, Baso % (Auto) 0.1, Absolute Neuts (auto) 6.1, Absolute Lymphs (auto) 1.90, Nucleated RBC % 0, Syphilis Total Ab Nonreactive, Blood Type A POSITIVE, Antibody Screen NEGATIVE 03/23/25 06:40: WBC 11.5 H, RBC 3.53 L, Hgb 10.7 L, Hct 31.1 L, MCV 88.1, MCH 30.3, MCHC 34.4, RDW Std Deviation 46.4 H, RDW Coeff of Romy 14.5, Plt Count 130 L, MPV 9.8 Physical Exam Narrative Abd: soft, fundus firm. dressing dry and intact. Const alert and oriented x3 General Appearance: cooperative HEENT normocephalic Neck General: normal visual inspection GI soft to palpation and non-distended GI Narrative: Fundus firm Extremity normal to inspection and no calf tenderness Skin no rashes or lesions noted Neuro oriented x3 and CN's II-XII intact bilaterally Psych mental status grossly normal Assessment & Plan Assessment/Plan (1) Delivery by section: (2) H/O tubal ligation: PLAN: Plan POD# 1 , Doing well Routine care pain mgmt monitor VS ambulation
[2025-03-23 14:21] VITALS: BP 102/57; PULSE 64; RESP 15; TEMP 36.7
[2025-03-23] MEDS: Ibuprofen 600 MG Tablet PO ×2 (14:26→20:20)
[2025-03-23] MEDS: oxyCODONE 5 MG Tablet PO ×3 (16:09→21:30)
[2025-03-23 20:20] VITALS: BP 103/57; PULSE 67; RESP 16; TEMP 36.8; O2SAT 97
[2025-03-23] MEDS: SimETHICONE 80 MG Chewable Tablet PO (20:20)
[2025-03-24 02:35] VITALS: BP 93/72; PULSE 63; RESP 16; TEMP 36.3; O2SAT 96
[2025-03-24] MEDS: Ibuprofen 600 MG Tablet PO ×2 (02:36→08:26)
[2025-03-24] MEDS: Acetaminophen 500 MG Tablet 1000 MG PO (05:28)
--- NOTE | 2025-03-24 08:08 | PCM.PN.OB ---
Subjective Subjective Doing well per patient and nursing staff. Ambulating and taking PO without difficulty. Voiding and passing flatus. Pain controlled. Bottle feeding. Denies headache, visual changes, chest pain, shortness of breath, leg pain or increased bleeding. Lochia normal. Objective Data Objective Data Vital Signs: Vital Signs Temp Pulse Resp BP Pulse Ox O2 Del Method 97.4 F L 63 16 93/72 96 Room Air 03/24/25 02:35 03/24/25 02:35 03/24/25 02:35 03/24/25 02:35 03/24/25 02:35 03/24/25 02:35 Oxygen Delivery Method Room Air Weight: 148 lb Body Mass Index (BMI) 25.4 Intake & Output: Intake and Output for Last 24 Hours 03/22/25 03/23/25 03/24/25 23:59 23:59 23:59 Intake Total 2975.75 / 2975.75 1000 / 1000 Output Total 2400 / 2400 300 / 300 Balance 575.75 / 575.75 700 / 700 Lab / Micro Data 03/23/25 06:40 ROS Constitutional Constitutional: Reports systems reviewed and no addt'l complaints, except as documented; Denies headache(s) Eyes Eyes: Denies acute decrease in peripheral vision, blurry vision or change in vision ENT HEENT: Reports systems reviewed and no addt'l complaints, except as documented Cardiovascular Cardiovascular: Denies chest pain or dizziness Respiratory/Chest Respiratory/Chest: Denies cough, dyspnea, dyspnea on exertion, shortness of breath at rest or shortness of breath with exertion Gastrointestinal Gastrointestinal: Denies abdominal pain, diarrhea, nausea or vomiting Genitourinary Genitourinary: Denies abdominal discomfort Musculoskeletal Musculoskeletal: Denies limited range of motion Integumentary Integumentary: Reports systems reviewed and no addt'l complaints, except as documented Neurologic Neurologic: Reports systems reviewed and no addt'l complaints, except as documented Psychiatric Psychiatric: Reports systems reviewed and no addt'l complaints, except as documented Endocrine Endocrinology: Reports systems reviewed and no addt'l complaints, except as documented Hematologic/Lymphatic Hematologic/Lymphatic: Reports systems reviewed and no addt'l complaints, except as documented Allergic/Immunologic Allergic/Immunologic: Reports systems reviewed and no addt'l complaints, except as documented Physical Exam Const alert and oriented x3 General Appearance: cooperative Orientation / Consciousness: awake, oriented to person, oriented to place and oriented to time Exam Limitations: no limitations HEENT normocephalic Head and Scalp: normal to inspection, normocephalic and atraumatic Face and Sinus: normal facial exam Eyes General Eye: normal appearance of both eyes Neck full ROM Chest Chest: symmetrical chest wall rise Resp normal respiratory effort and normal air movement Auscultation: clear to auscultation bilaterally Cardio regular rate, regular rhythm, S1 normal heart sound, S2 normal heart sound, no murmurs, no rub, no gallops and no clicks GI normal to inspection, nondistended, normoactive bowel sounds and non-tender GI Narrative: Dressing dry and intact, fundus firm 1 below U appearance of the vagina normal Bladder / Kidney Exam: no CVA tenderness Back/Spine normal ROM Extremity normal to inspection and full ROM Skin no rashes or lesions noted Neuro oriented x3, CN's II-XII intact bilaterally and moves all extremities Sensorium / Orientation: awake, alert and oriented to person Motor Exam: clonus absent Deep Tendon Reflexes: Rt Patellar (L4): 2+ and Lt Patellar (L4): 2+ Assessment & Plan (1) Delivery by section: (2) Post-operative pain: (3) H/O tubal ligation: PLAN: Plan 1) Routine care, POD #2 Repeat LTCS with bilateral salpingectomy 2) Vitals signs stable 3) Pain controlled, will send prescription for oxycodone and colace 4) Bottle feeding 5) D/C home 6) Follow up in 1 weeks and 6 weeks
--- NOTE | 2025-03-24 08:08 | PCM.DC.SUM ---
Providers Date of Admission: 03/22/25 Primary Care Physician: EUGENE Michael Reason For Visit: Diagnosis Discharge Diagnosis (1) Delivery by section: Status: Acute (2) H/O tubal ligation: Status: Acute Code(s): Z98.51 - Tubal ligation status (3) Post-operative pain: Status: Acute Code(s): G89.18 - Other acute postprocedural pain Medications at Discharge Home Medications vits,calcium no.78-iron fumarate-folic acid 29 mg-1 mg tablet 1 tab PO DAILY 09/26/20 pantoprazole 20 mg tablet,delayed release 20 mg PO DAILY heartburn 01/14/23 acetaminophen 500 mg tablet 1,000 mg (2 x 500 mg) PO Q6 #0 tabs 03/24/25 ibuprofen 600 mg tablet 600 mg PO Q6H #0 tabs 03/24/25 oxycodone 5 mg tablet 5 mg PO Q6H 7 days #7 tabs 03/24/25 sennosides 8.6 mg-docusate sodium 50 mg tablet (Stimulant Laxative Plus) 1 - 2 tab PO DAILY #30 tabs 03/24/25 Hospital Course Summary of Care Provided Minutes Spent on Discharge: 15 Hospital Course: Presented on 03/22/25 for repeat low transverse and bilateral salpingectomy. Postoperative course uncomplicated. Discharged home on postoperative day #2. Weight / BMI Weight Weight: 148 lb Body Mass Index (BMI) 25.4 ABG / Lab / Microbiology Data 03/23/25 06:40 D/C Instructions Discharge Diet: No restrictions May resume sexual activity in: 6 weeks Weight Bearing Status: Full weight bearing Lifting Restricted to (Lbs): 20 Call your doctor if your incision/area has: Continuous Slow Oozing, Sudden Increased Bleeding, Increased Pain/ Swelling, Increased Redness, Foul Smelling Discharge and Swelling at the incision site Call your doctor if you observe: Fever of 101 or Higher, Inability to urinate, Inability to have a bowel movement, Using more than 1 pad per hour, Shortness of breath, Dizziness, Fainting spells, Chest pain, Increased palpitations (irregular heartbeat), Calf discomfort and Uncontrolled pain Suture Line Care: Avoid Pulling/Pushing Remove Dressing in: 1 week Cleanse incision/area with: Keep Dressing Clean & Dry DC O2, CPAP, BIPAP Needs Home O2 Discharge instructions: No Meaningful Use Info Meaningful Use Meaningful Use Diagnoses (Choose all that apply): None applicable Ischemic Stroke Statin Dosing Therapy Reference: STATIN DOSE THERAPY REFERENCE: * Patients > 75 years receive moderate or high dose statin therapy. * Patients 75 years or YOUNGER should receive HIGH intensity statin dose unless contraindicated. You will be required to document reason for non-treatment if statin daily dose does not meet guidelines. HIGH DOSE STATIN THERAPY DAILY Atorvastatin > than or = to 40 mg Rosuvastatin > than or = to 20 mg Amlodipine + Atorvastatin > than or = to 2.5/40 mg Ezetimibe + Simvastatin 10/80 mg Simvastatin 80mg Discharge Plan Admission Admit Date/Time: 03/22/25 10:00 Primary Reason for Your Visit: Repeat Section with bilateral tubal sterilization Attending Provider: Shantel Stauffer Primary Care Provider: Silvia Borden Discharge Orders/Prescriptions Prescriptions: New acetaminophen 500 mg Tablet 1,000 mg PO Q6 Qty: 0 0RF ibuprofen 600 mg Tablet 600 mg PO Q6H Qty: 0 0RF oxycodone 5 mg Tablet 5 mg PO Q6H 7 Days Qty: 7 0RF sennosides-docusate sodium [Stimulant Laxative Plus] 8.6-50 mg Tablet 1 - 2 tab PO DAILY Qty: 30 0RF Continued vit,[id number]-cocbs 1 TABLET tablet 1 tab PO DAILY pantoprazole 20 mg Tablet,Delayed Release (Dr/Ec) 20 mg PO DAILY Referrals / Follow Up: Silvia Borden PA [Primary Care Provider] - Disposition Disposition (needs filled in before D/C Order can be placed): Home, Self Care
[2025-03-24 08:15] VITALS: BP 108/71; PULSE 75; RESP 16; TEMP 36.8; O2SAT 99
[2025-03-24] MEDS: Senna/Docusate Sodium 1 Tablet PO (09:59)
[2025-03-24 12:09] LABS: Pathology Specimen OB SEE PATHOLOGY REPORT
== END 2025-03-24 11:05 | disposition home or self-care (01) | DRG 785 ==
PROVIDERS: Admitting Provider Obstetrics & Gynecology; Referring Provider Obstetrics & Gynecology; Visit Provider Obstetrics & Gynecology
PROC: 10D00Z1 Extraction of Products of Conception, Low, Open Approach (ICD-10-PCS; CPT 59514; principal; 2025-03-22 11:45)
DX: O34.211 Maternal care for low transverse scar from previous cesarean delivery (principal); O26.23 Pregnancy care for patient with recurrent pregnancy loss, third trimester; Z37.0 Single live birth; Z3A.37 37 weeks gestation of pregnancy; Z30.2 Encounter for sterilization; Z86.16 Personal history of COVID-19
CPT/HCPCS: 59050; 85025; 85027; 86780; 86850; 86900; 86901; 88302; 99221; A4216; G0378; J2405